=== PATIENT | male | born 1960 | race Caucasian/White ===

== ENCOUNTER 2020-03-29 14:18 | Inpatient (IN) | payer MEDICAID, SELFPAY ==
[~2020-03-29] VITALS: Ht 177.8 cm; Wt 93.0 kg
--- NOTE | 2020-03-29 14:18 | NUR ---
PATIENT LEONOR ALS TO ER BED 09
[2020-03-29 14:29] VITALS: BP 134/83
--- NOTE | 2020-03-29 14:34 | NUR ---
59 Y/O MALE BIBA FROM HOME FOR SOB/DRY COUGH/RESP DISTRESS X3 DAYS. UPON ARRIVAL PT WAS TAHCYPNEIC 50 BPM, LABORED. LUNG SOUNDS CLEAR BILAT. AFEBRILE. UNABLE TO AMBULATE D/T SOB. AAOX4. DENIES ANY CHEST PAIN OR CONTACT WITH COVID + PTS. PMH: PROSTATE CX NKDA
[2020-03-29] MEDS ORDERED: AZITHROMYCIN 500 MG in DEXTROSE 5% 250 ML IV ONE (14:40)
[2020-03-29] MEDS ORDERED: DEXAMETHASONE 4 MG/ML VIAL IVP ONE (14:40)
[2020-03-29] MEDS ORDERED: fentaNYL citrate 0.05 MG/ML VIAL NS ONE (14:55)
[2020-03-29] MEDS ORDERED: cefTRIAXone 1,000 MG VIAL ONE (15:08)
[2020-03-29 15:15] LABS: BASOPHILS # (AUTO) 0.1 K/uL (0.00-0.22); BASOPHILS % (AUTO) 0.9 % (0.0-2.0); EOSINOPHILS # (AUTO) 0.3 K/uL (0-0.4); EOSINOPHILS % (AUTO) 4.6 % (0.0-4.0); HEMATOCRIT 46.3 % (36-52); HEMOGLOBIN 15.6 g/dL (12.0-18.0); LYMPHOCYTES # (AUTO) 0.4 K/uL (2.0-11.5); LYMPHOCYTES % (AUTO) 5.2 % (20.5-51.1); MEAN CORPUSCULAR HEMOGLOBIN 29 pg (27-31); MEAN CORPUSCULAR HGB CONC 34 g/dL (33-37); MEAN CORPUSCULAR VOLUME 86.9 fL (80-94); MONOCYTES # (AUTO) 0.4 K/uL (0.8-1.0); MONOCYTES % (AUTO) 6.1 % (1.7-9.3); NEUTROPHILS # (AUTO) 5.9 K/uL (1.8-7.7); NEUTROPHILS % (AUTO) 83.2 % (42.2-75.2); PLATELET COUNT (AUTO) 228 K/uL (140-450); RED BLOOD CELL COUNT(AUTO) 5.33 MIL/uL (4.20-6.10); RED CELL DISTRIBUTION WIDTH 13.6 % (11.6-13.7); WHITE BLOOD COUNT (AUTO) 7.1 K/uL (4.8-10.8)
[2020-03-29 15:32] LABS: FIBRINOGEN 500 mg/dL (200-400); PROTHROMBIN TIME 11.3 secs (10.8-13.4)
[2020-03-29 16:06] LABS: D-DIMER > 5000 ng/ml (0-400)
[2020-03-29] MEDS ORDERED: AZITHROMYCIN 500 MG INJ VIAL IV ONE (16:27)
[2020-03-29] MEDS ORDERED: LOVENOX 1MG/KG Q12H SUBQ STA (16:35)
[2020-03-29 16:45] LABS: LACTATE DEHYDROGENASE 360 U/L (85-227)
[2020-03-29] MEDS ORDERED: ENOXAPARIN 100 MG/ML SYR SUBQ ONE (16:48)
[2020-03-29 18:33] LABS: ALBUMIN 2.3 g/dL (3.4-5.0); ANION GAP 15.5 (8-16); CARBON DIOXIDE 22.3 mmol/L (21-32); POTASSIUM 3.8 mmol/L (3.5-5.1); TOTAL BILIRUBIN 1.1 mg/dL (0.0-1.0)
[2020-03-29 18:52] LABS: APPEARANCE,URINE CLEAR (CLEAR); BILIRUBIN,URINE NEGATIVE (NEGATIVE); BLOOD, URINE NEGATIVE (NEGATIVE); COLOR,URINE DARK YELLOW (YELLOW); LEUKOCYTE ESTERASE ,URINE NEGATIVE (NEGATIVE); NITRITE, URINE NEGATIVE (NEGATIVE); UGLUCOSE NEGATIVE (NEGATIVE)
[2020-03-29] MEDS ORDERED: POTASSIUM CHLORIDE 10 MEQ TABER PO PRN (18:55)
[2020-03-29] MEDS ORDERED: ZOLPIDEM 5 MG TAB PO PRN (18:55)
[2020-03-29] MEDS ORDERED: ONDANSETRON 4 MG/2 ML VIAL IM/IVP PRN (18:55)
[2020-03-29] MEDS ORDERED: HYDROcodone/APAP 7.5/325 MG 1 TAB PO PRN (18:55)
[2020-03-29] MEDS ORDERED: guaiFENesin DM 200/20 MG-10 ML 10 ML UDC PO PRN (18:55)
--- NOTE | 2020-03-29 18:55 | NUR ---
DINNER TRAY PROVIDED AT BEDSIDE
[2020-03-29] MEDS ORDERED: ALBUTEROL HFA MDI 90 MCG/ACTUATION 8 GM INH PRN (19:00)
[2020-03-29] MEDS: NACL 0.9% 1,000 ML IV SCH (19:30)
--- NOTE | 2020-03-29 19:39 | NUR ---
RECIVED REPORT FROM DEE DEE MONDRAGON, CONTINUATION OF CARE.
[2020-03-29 19:47] LABS: BARBITURATE, URINE NEGATIVE ng/ml (NEG <=200); BENZODIAZEPINE, URINE NEGATIVE ng/mL (NEG <=200); CANNABINOID, URINE NEGATIVE ng/mL (NEG <=50); COCAINE, URINE NEGATIVE ng/mL (NEG <=300); OPIATE, URINE NEGATIVE ng/mL (NEG <=2000); PHENCYCLIDINE SCREEN,URINE NEGATIVE ng/mL (NEG <=25)
--- NOTE | 2020-03-29 20:45 | NUR ---
CONSENT SIGNED BY PATIENT.
--- NOTE | 2020-03-30 00:19 | NUR ---
SPOKE WITH HEATHER-GRANDSON AND GAVE UPDATE ON PATIENT STATUS WITH PERMISSION FROM PATIENT. [phone]
--- NOTE | 2020-03-30 00:20 | NUR ---
Patient appears to be resting comfortably in bed. Vital Signs within normal limits. NON-REBREATHER MASK IN PLACE AND PATIENT O2SAT @ 92% 10L. PT A&O X4. CALL LIGHT WITHIN REACH. URINAL AT BEDSIDE. PT GIEVN BLANKET AND PILLOW FOR COMFORT MEASURES. PT ABLE TO REPOSITON SELF. PT BED LOCKED AND IN LOWES POSITION.
--- NOTE | 2020-03-30 02:16 | NUR ---
Patient appears to be resting comfortably in bed. Vital Signs within normal limits. Respirations even and unlabored.
--- NOTE | 2020-03-30 03:02 | NUR ---
Patient appears to be resting comfortably in bed. Vital Signs within normal limits. Respirations even and unlabored.
[2020-03-30] MEDS: NACL 0.9% 1,000 ML IV SCH ×2 (04:55→15:35)
--- NOTE | 2020-03-30 05:21 | NUR ---
700CC OF YELLOW URINE EMPTIED OUT OF URINAL. PT ALERT AND ORIENTED X4. PATIENT REMAINS ON CARDIAC MONIOTR. VSS. PT ON 10L ON NON-REBREATHER MASK @ 94% O2SAT. PT DENIES PAIN AT THIS TIME. BED IS LOCKED AND IN LOWEST POSITION.
--- NOTE | 2020-03-30 07:04 | NUR ---
Patient appears to be resting comfortably in bed. Vital Signs within normal limits. Respirations even and unlabored. URINAL AT BEDSIDE.
--- NOTE | 2020-03-30 07:48 | NUR ---
Report received from GIANCARLO Rivera, transfered care at this time.
--- NOTE | 2020-03-30 07:54 | NUR ---
Pt resting visible equal rise and fall of chest, VSS, will continue to monitor.
[2020-03-30] MEDS: PANTOPRAZOLE 40 MG TABEC PO SCH (08:50)
[2020-03-30] MEDS: AZITHROMYCIN 250 MG TAB PO SCH (08:51)
[2020-03-30] MEDS: ZINC SULF 220 MG CAP PO SCH (08:51)
[2020-03-30] MEDS: ASCORBIC ACID 500 MG TAB PO SCH (08:51)
[2020-03-30] MEDS ORDERED: COMMUNICATION ORDER MC SCH (09:00)
[2020-03-30 09:09] LABS: BASOPHILS % (AUTO) 0.1 % (0.0-2.0); EOSINOPHILS % (AUTO) 0.1 % (0.0-4.0); HEMATOCRIT 44.2 % (36-52); HEMOGLOBIN 14.8 g/dL (12.0-18.0); LYMPHOCYTES # (AUTO) 0.5 K/uL (2.0-11.5); MEAN CORPUSCULAR HEMOGLOBIN 29 pg (27-31); MEAN CORPUSCULAR HGB CONC 34 g/dL (33-37); MEAN CORPUSCULAR VOLUME 87.6 fL (80-94); MONOCYTES # (AUTO) 0.3 K/uL (0.8-1.0); MONOCYTES % (AUTO) 5.6 % (1.7-9.3); NEUTROPHILS # (AUTO) 5.4 K/uL (1.8-7.7); PLATELET COUNT (AUTO) 258 K/uL (140-450); RED BLOOD CELL COUNT(AUTO) 5.05 MIL/uL (4.20-6.10); RED CELL DISTRIBUTION WIDTH 13.5 % (11.6-13.7); WHITE BLOOD COUNT (AUTO) 6.2 K/uL (4.8-10.8)
[2020-03-30 09:49] LABS: ANION GAP 13.6 (8-16); CARBON DIOXIDE 24.9 mmol/L (21-32); CREATININE 0.8 mg/dL (0.6-1.3); POTASSIUM 4.5 mmol/L (3.5-5.1)
--- NOTE | 2020-03-30 10:14 | NUR ---
Pt repositioned in bed, VSS, will continue to monitor.
[2020-03-30 10:29] LABS: NEUTROPHILS % (AUTO) 86.2 % (42.2-75.2)
--- NOTE | 2020-03-30 12:04 | NUR ---
Gave pt water, HOB elevated, no changes at this time.
--- NOTE | 2020-03-30 14:26 | NUR ---
Pt assisted with urinal at bedside, gave sips of H2O, patient comfortable HOB elevated. VSS, will continue to monitor.
--- NOTE | 2020-03-30 16:04 | NUR ---
Pt sleeping, visible equal rise and fall of chest, VSS, will continue to monitor.
[2020-03-30] MEDS ORDERED: cefTRIAXone 1,000 MG VIAL ONE (17:29)
--- NOTE | 2020-03-30 18:30 | NUR ---
Pt placed in a diaper by request, repositioned in bed, HOB elevated, VSS, will continue to monitor.
[2020-03-30] MEDS: DOCUSATE SODIUM 100 MG GELCAP PO PRN (19:20)
--- NOTE | 2020-03-30 19:22 | NUR ---
Gave report to GIANCARLO Rivera, transfered care at this time.
--- NOTE | 2020-03-30 19:32 | NUR ---
RECIVED REPORT FROM JOY MONDRAGON. TRANSFER OF CARE.
--- NOTE | 2020-03-30 19:55 | NUR ---
PATIENT ASSISTED WITH TOILETING AND GIVEN BED MORRIS AND HAD LARGE BM, BROWN, SOFT, AND FORMED. PT SKIN INTACT, SKIN LEFT CLEAN AND DRY. PATIENT GIVEN URINAL AT BEDISDE AND URINATED 700CC OF YELLOW URINE. PT SKIN INTACT. PATIENT ABLE TO REPOSITON SELF. PT REMAINS A &O X4. PT REMAINS ON NON-REBREATHER MASK @ 15L/MIN. PATIENT REMAINS ON DIRECTOR IMMUNOLOGY. VSS. BED IS LOCKED AND IN LOWEST POSITION. IV SITE REMAINS PATIENT AND IVF RUNNING ORDERED.
[2020-03-30 21:23] LABS: CHOL/HDL RATIO 8.6 (1-4.5); FREE T4 (FREE THYROXINE) 1.68 ng/dL (0.76-1.46); MAGNESIUM 2.4 mg/dL (1.8-2.4); PHOSPHORUS 3.5 mg/dL (2.5-4.9); THYROID STIMULATING HORMONE 1.66 uIU/mL (0.34-3.74)
--- NOTE | 2020-03-30 23:20 | NUR ---
Patient will be admitted to care of . Admited to TELE. Will go to room 108B. Belongings list completed. Report to LIBIA MONDRAGON.
[2020-03-30 23:45] VITALS: BP 126/59
--- NOTE | 2020-03-30 23:45 | NUR ---
RECEIVED REPORT FROM ER NURSE, ISIDORO. PT ON TELE, AOX4 ON 15L NRB, O2 SAT FLUCTUATING 88% TO 90%. NO S/S RESPIRATORY DISTRESS. NO C/O PAIN AT THIS TIME. IV SITE L HAND 20G, RAC 20G, PATENT AND INTACT, INFYUSING IVF ORDERED. SKIN WARM DRY INTACT. BOWEL SOUNDS ACTIVE. ORIENTED TO ROOM AND HOSPITAL. SAFETY MEASURES AND DROPLET PRECAUTION IN PLACE. CALL LIGHT WITHIN REACH. WILL CONTINUE TO MONITOR. VS: BP 126/59 HR 99 RR 22 O2 SAT 90% TEMP 97.3 DX: [facility], COVID
--- NOTE | 2020-03-31 | NUR ---
PLAN OF CARE DISCUSSED. PT VERBALIZED UNDERSTANDING. DENIES PAIN. DENIES SOB. RESPIRATIONS EVEN AND UNLABORED. WILL CONTINUE TO MONITOR
[2020-03-31] MEDS: NACL 0.9% 1,000 ML IV SCH ×3 (00:09→20:40)
--- NOTE | 2020-03-31 02:30 | NUR ---
PT AWAKE IN BED. WATCHING TELEVISION. DENIES PAIN DENIES SOB. NO DISTRESS NOTED. WILL CONTINUE TO MONITOR
--- NOTE | 2020-03-31 04:35 | NUR ---
PT ASLEEP IN BED. NO DISTRESS NOTED. WILL CONTINUE TO MONITOR
--- NOTE | 2020-03-31 05:33 | NUR ---
PROVIDED SNACKS AND JUICE. ASSISTED PT WITH EATING. TOLERATED WELL. NRB MASK PLACED BACK ON. NO DISTRESS NOTED. WILL CONTINUE TO MONITOR
[2020-03-31 06:07] VITALS: BP 117/72
--- NOTE | 2020-03-31 07:10 | NUR ---
RECEIVED REPORT FROM NIGHT NURSE FOR CONTINUITY OF CARE, PT IS STABLE, PT ASLEEP. PT HAS LH 20G SALINE LOCK AND RAC20G INFUSING NS AT 100ML/H, SKIN INTACT, PT ON 15L NON-REBREATHER. SAFETY MEASURES IN PLACE, WILL CONTINUE TO MONITOR.
--- NOTE | 2020-03-31 07:10 | NUR ---
ENDORSED PT TO DAY RN FOR CONTINUITY OF CARE. PT IS IN STABLE CONDITION
[2020-03-31 08:00] VITALS: BP 119/78
[2020-03-31] MEDS: ENOXAPARIN 40 MG/0.4 ML SYR SUBQ SCH (08:33)
[2020-03-31] MEDS: AZITHROMYCIN 250 MG TAB PO SCH (08:34)
[2020-03-31] MEDS: ASCORBIC ACID 500 MG TAB PO SCH (08:34)
[2020-03-31] MEDS: PANTOPRAZOLE 40 MG TABEC PO SCH (08:34)
[2020-03-31] MEDS: ZINC SULF 220 MG CAP PO SCH (08:36)
--- NOTE | 2020-03-31 08:41 | NUR ---
ADMINISTERED SCHEDULED MEDICATION,MEDICATION EDUCATION PROVIDED. PT TOLERATED WELL. PT IS STABLE, WILL CONTINUE TO MONITOR. CALL LIGHT WITHIN REACH.
[2020-03-31 09:01] LABS: BASOPHILS % (AUTO) 0.1 % (0.0-2.0); EOSINOPHILS % (AUTO) 0.1 % (0.0-4.0); HEMATOCRIT 44.9 % (36-52); HEMOGLOBIN 15.1 g/dL (12.0-18.0); LYMPHOCYTES # (AUTO) 0.5 K/uL (2.0-11.5); LYMPHOCYTES % (AUTO) 5.8 % (20.5-51.1); MEAN CORPUSCULAR HEMOGLOBIN 29 pg (27-31); MEAN CORPUSCULAR HGB CONC 34 g/dL (33-37); MEAN CORPUSCULAR VOLUME 87.4 fL (80-94); MONOCYTES # (AUTO) 0.5 K/uL (0.8-1.0); MONOCYTES % (AUTO) 5.6 % (1.7-9.3); NEUTROPHILS # (AUTO) 7.9 K/uL (1.8-7.7); NEUTROPHILS % (AUTO) 88.4 % (42.2-75.2); PLATELET COUNT (AUTO) 285 K/uL (140-450); RED BLOOD CELL COUNT(AUTO) 5.14 MIL/uL (4.20-6.10); RED CELL DISTRIBUTION WIDTH 13.5 % (11.6-13.7); WHITE BLOOD COUNT (AUTO) 8.9 K/uL (4.8-10.8)
[2020-03-31 09:02] LABS: ANION GAP 11.9 (8-16); CREATININE 0.9 mg/dL (0.6-1.3); POTASSIUM 3.9 mmol/L (3.5-5.1)
--- NOTE | 2020-03-31 10:40 | NUR ---
CALLED RT TO COME ASSESS PT, PT IS STABLE,
--- NOTE | 2020-03-31 11:30 | NUR ---
CALLED RT TO COME ASSESS PT, PT IS STABLE, WILL CONTINUE TO MONITOR
[2020-03-31 12:00] VITALS: BP 124/79
--- NOTE | 2020-03-31 12:23 | NUR ---
SOCIAL WORK NOTE: Patient's Orientation Unable To Assess Information Provided By HEATHER STAPLES Comments SW WAS UNABLE TO MEET PATIENT AT BEDSIDE DUE TO MEDICAL CONDITION. SW COMPLETED ASSESSMENT WITH PATIENT'S GRANDSON. Procurement Coordinator, Realtionship and Phone Number HEATHER STAPLES [phone] AMI SMITH [phone] [facility] Power of [place] No Does Patient Have a POLST No Identifying Problems No Social Work Triggers Is A Social Work Consult Needed No Mandate Report Filed No Explanation Of Identifying Problems PATIENT IS A 59-YEAR-OLD MALE ADMITTED FOR BILATERAL PNEUMONIA AND COVID. PATIENT HAS NO REPORTED PMHX. Admitted From Home Pre-Admission Level Of Functioning Status Independent/Ambulatory Prior Resources/Services Used In Last 12 Months No Prior Resources Used Prior DME No Prior DME Used Dialysis Comments N/A Living Situation Lives With Family Mobile Home Other Living Situation/Comment BEL STATED THAT PATIENT LIVES WITH HIM AND SPOUSE. Patient Had Caregiver No Home Support No Caregiver Issues Financial Issues No Known Financial Issue Referral To The Financial Counselor Needed No Factors/Needs No D/C Needs Identified Pt/Rep Participated In Discharge Plan Yes Patient/Family Agress With Discharge Plan Yes Discharge Plan Comments TENTATIVE DISCHARGE PLAN IS FOR PATIENT TO RETURN HOME. DC Plan Status Initiated Addendum: 04/01/20 at 1549 by Poncho CANALES PER RN REQUEST, AGNES PROVIDED FOOD BANK RESOURCES TO PATIENT.
[2020-03-31 16:00] VITALS: BP 109/64
--- NOTE | 2020-03-31 17:41 | NUR ---
ADMINISTERED SCHEDULED MEDICATION, MEDICATION EDUCATION PROVIDED. PT TOLERATED WELL, PT IS STABLE, WILL CONTINUE TO MONITOR.
--- NOTE | 2020-03-31 19:20 | NUR ---
ENDORSE TO NIGHT NURSE FOR CONTINUITY OF CARE, PT IS STABLE
--- NOTE | 2020-03-31 19:25 | NUR ---
RECEIVED PT AWAKE SITTING UP ON BED, AAOX4, NO RESP DISTRESS NOTED, WITH SAT-96% ON O2 AT 15L VIA NRB MASK, PLAN OF CARE DISCUSSED AND SAFETY MEASURES IN PLACE, MAINTAINED ON DROPLET PRECAUTION FOR R/O COVID, CALL LIGHT WITHIN REACH.
[2020-03-31 20:00] VITALS: BP 115/72
--- NOTE | 2020-03-31 21:30 | NUR ---
SEEN PT AWAKE WATCHING TV, NO RESP DISTRESS NOTED, MONITORED CLOSELY.
[2020-04-01] VITALS: BP 119/72
--- NOTE | 2020-04-01 00:15 | NUR ---
PT IN NO RESP DISTRESS, CONTINUE ON 15L NONREBREATHER MASK WITH SAT OF 95%, IVF INFUSING WELL, MEDICATED PRN FOR INSOMNIA WITH AMBIEN PO, MONITORED CLOSELY.
[2020-04-01 04:25] VITALS: BP 122/72
--- NOTE | 2020-04-01 05:20 | NUR ---
SEEN PT SLEEPING, NO RESP DISTRESS NOTED, IVF INFUSING WELL, MONITORED CLOSELY.
[2020-04-01] MEDS: NACL 0.9% 1,000 ML IV SCH ×2 (07:07→17:26)
--- NOTE | 2020-04-01 07:29 | NUR ---
RECEIVED REPORT FROM NIGHT NURSE FOR CONTINUITY OF CARE, PT IS STABLE. PT ON 15L NON-REBREATHER. PT HAS RAC 20G INFUSING NS AT 100 AND LH 22G SALINE LOCK. SAFETY MEASURES IN PLACE, WILL CONTINUE TO MONITOR.
--- NOTE | 2020-04-01 07:30 | NUR ---
PT AWAKE, NO RESP DISTRESS NOTED, REPORT GIVEN TO RN NA FOR CONTINUITY OF CARE.
[2020-04-01 08:00] VITALS: BP 117/80
[2020-04-01] MEDS: ASCORBIC ACID 500 MG TAB PO SCH (08:15)
[2020-04-01] MEDS: ENOXAPARIN 40 MG/0.4 ML SYR SUBQ SCH (08:15)
[2020-04-01] MEDS: ZINC SULF 220 MG CAP PO SCH (08:15)
[2020-04-01] MEDS: AZITHROMYCIN 250 MG TAB PO SCH (08:15)
[2020-04-01] MEDS: PANTOPRAZOLE 40 MG TABEC PO SCH (08:15)
--- NOTE | 2020-04-01 08:18 | NUR ---
ADMINISTERED SCHEDULED MEDICATION, MEDICATION EDUCATION PROVIDED. PT TOLERATED WELL. PT IS STABLE, WILL CONTINUE TO MONITOR.
[2020-04-01 08:37] LABS: CARBON DIOXIDE 27.4 mmol/L (21-32); CREATININE 0.9 mg/dL (0.6-1.3); POTASSIUM 4.4 mmol/L (3.5-5.1)
[2020-04-01 08:54] LABS: BASOPHILS % (AUTO) 0.2 % (0.0-2.0); EOSINOPHILS # (AUTO) 0.1 K/uL (0-0.4); EOSINOPHILS % (AUTO) 1.5 % (0.0-4.0); HEMATOCRIT 42.7 % (36-52); HEMOGLOBIN 14.1 g/dL (12.0-18.0); LYMPHOCYTES # (AUTO) 0.5 K/uL (2.0-11.5); LYMPHOCYTES % (AUTO) 5.3 % (20.5-51.1); MEAN CORPUSCULAR HEMOGLOBIN 29 pg (27-31); MEAN CORPUSCULAR HGB CONC 33 g/dL (33-37); MEAN CORPUSCULAR VOLUME 87.7 fL (80-94); MONOCYTES # (AUTO) 0.6 K/uL (0.8-1.0); MONOCYTES % (AUTO) 5.8 % (1.7-9.3); NEUTROPHILS # (AUTO) 8.5 K/uL (1.8-7.7); NEUTROPHILS % (AUTO) 87.2 % (42.2-75.2); PLATELET COUNT (AUTO) 263 K/uL (140-450); RED BLOOD CELL COUNT(AUTO) 4.87 MIL/uL (4.20-6.10); RED CELL DISTRIBUTION WIDTH 13.6 % (11.6-13.7); WHITE BLOOD COUNT (AUTO) 9.7 K/uL (4.8-10.8)
--- NOTE | 2020-04-01 09:33 | NUR ---
PT COMPLAINED OF NAUSEA, WENT TO GIVE PT ZOFRAN AND PT STATES HE IS HAVING STOMACH PAIN OF 2-3 AND NOT NAUSEA. GAVE PT BEDPAN TO USE.
[2020-04-01] MEDS: DOCUSATE SODIUM 100 MG GELCAP PO PRN (11:54)
--- NOTE | 2020-04-01 11:55 | NUR ---
ADMINISTERED COLACE FOR CONSTIPATION, PT COMPLAINS STOMACH HURTS AND UNABLE TO HAVE A BOWEL MOVEMENT. MEDICATION EDUCATION PROVIDED. PT TOLERATED WELL. PT IS STABLE, WILL CONTINUE TO MONITOR.
[2020-04-01 12:00] VITALS: BP 116/76
[2020-04-01 16:00] VITALS: BP 115/82
--- NOTE | 2020-04-01 17:26 | NUR ---
ADMINISTERED SCHEDULED MEDICATION, MEDICATION EDUCATION PROVIDED. PT TOLERATED WELL. PT IS STABLE, WILL CONTINUE TO MONITOR.
--- NOTE | 2020-04-01 19:10 | NUR ---
ENDORSE P TO NIGHT NURSE FOR CONTINUITY OF CARE, PT IS STABLE
--- NOTE | 2020-04-01 19:15 | NUR ---
RECEIVED PT AWAKE SITTING UP ON BED, AAOX4, NO RESP DISTRESS NOTED, WITH SAT-96% ON O2 AT 15L VIA NRB MASK, PLAN OF CARE DISCUSSED AND SAFETY MEASURES IN PLACE, MAINTAINED ON DROPLET PRECAUTION FOR R/O COVID, CALL LIGHT WITHIN REACH. Addendum: 04/02/20 at 0020 by Ollie Lewis RN SAT IS 94%
[2020-04-01 20:00] VITALS: BP 115/76
--- NOTE | 2020-04-01 23:30 | NUR ---
SEEN PT SLEEPING ON HIGH FOWLERS POSITION, NO RESP DISTRESS NOTED, IVF INFUSING WELL, CONTINUE ON 15L O2 VIA NONREBREATHER MASK WITH SAT OF 94%, CONTINUE TO MONITOR CLOSELY.
[2020-04-02] VITALS: BP 117/77
--- NOTE | 2020-04-02 04:10 | NUR ---
SEEN PT SLEEPING, NO SIGNS OF RESP DISTRESS, IVF INFUSING WELL, MONITORED CLOSELY.
[2020-04-02] MEDS: NACL 0.9% 1,000 ML IV SCH ×3 (05:17→22:55)
[2020-04-02 06:25] VITALS: BP 121/61
--- NOTE | 2020-04-02 07:20 | NUR ---
PT AWAKE, NO SIGNS OF DISTRESS, REPORT GIVEN TO GIANCARLO YANEZ FOR CONTINUITY OF CARE.
--- NOTE | 2020-04-02 07:22 | NUR ---
RECEIVED BEDSIDE REPORT FROM TOOLROOM CLERK NURSE. PT IS AWAKE AND SITTING UP ON BED, AAOX4, NO RESP DISTRESS OR PAIN NOTED, WITH SAT-96% ON O2 AT 15L VIA NRB MASK, PLAN OF CARE DISCUSSED AND SAFETY MEASURES IN PLACE, BED IN LOW POSITION AND CALL LIGHT WITHIN REACH. WILL CONTINUE TO MONITOR.
[2020-04-02 08:00] VITALS: BP 100/66
[2020-04-02] MEDS: ASCORBIC ACID 500 MG TAB PO SCH (08:24)
[2020-04-02] MEDS: PANTOPRAZOLE 40 MG TABEC PO SCH (08:25)
[2020-04-02] MEDS: AZITHROMYCIN 250 MG TAB PO SCH (08:25)
[2020-04-02] MEDS: ZINC SULF 220 MG CAP PO SCH (08:25)
--- NOTE | 2020-04-02 08:25 | NUR ---
ALL SCHEDULED MEDS GIVEN. PT IS STABLE. NO DISTRESS NOTED. WILL CONTINUE TO MONITOR.
[2020-04-02] MEDS: ENOXAPARIN 40 MG/0.4 ML SYR SUBQ SCH (08:26)
[2020-04-02 12:00] VITALS: BP 115/74
--- NOTE | 2020-04-02 12:10 | NUR ---
CHECKED ON PATIENT. PATIENT IS STABLE. NO RESPIRATORY DISTRESS NOTED. ON 15L NRB MASK SATING AT 91%. WILL CONTINUE TO MONITOR.
--- NOTE | 2020-04-02 13:45 | NUR ---
CHECKED ON PATIENT. PATIENT IS AWAKE AND WATCHING TV. NO RESPIRATORY DISTRESS NOTED. WILL CONTINUE TO MONITOR.
[2020-04-02 16:00] VITALS: BP 113/78
--- NOTE | 2020-04-02 16:34 | NUR ---
TITRATED O2 TO 10L NRB. PATIENT SATING 84% CONSISTENTLY. TITRATED IT BACK TO 15 L PATIENT IS SATING AT 91%.
--- NOTE | 2020-04-02 19:30 | NUR ---
ENDORSED TO DRAW BENCH OPERATOR NURSE FOR CONTINUITY OF CARE.
[2020-04-02 20:00] VITALS: BP 100/66
[2020-04-02] MEDS: ENOXAPARIN 80 MG/0.8 ML SYR SUBQ SCH (20:53)
[2020-04-02] MEDS ORDERED: LOVENOX 1MG/KG Q12H SUBQ SCH (21:00)
[2020-04-03] VITALS: BP 121/72
--- NOTE | 2020-04-03 00:20 | NUR ---
Positive COVID-19 test results were received from lab. A copy of the test results were given to Infection Control.
[2020-04-03 06:00] VITALS: BP 116/70
[2020-04-03 08:00] VITALS: BP 104/52
--- NOTE | 2020-04-03 08:00 | NUR ---
RECEIVED REPORT FROM MANAGER SECURITY AND SAFETY FOR CONTINUITY OF CARE. PATIENT ALERT AWAKE ORIENTED X4, NOT IN DISTRESS NOTED. ON 15L NRB SATURATING 91%. DENIES PAIN. WITH IVF ON GOING AND INFUSING WELL. ON MONITOR SHOWS SR/ST. DENIES PAIN AT THIS TIME.WILL CONTINUE TO MONITOR.
[2020-04-03] MEDS: ZINC SULF 220 MG CAP PO SCH (08:48)
[2020-04-03] MEDS: ASCORBIC ACID 500 MG TAB PO SCH (08:48)
[2020-04-03] MEDS: PANTOPRAZOLE 40 MG TABEC PO SCH (08:48)
[2020-04-03] MEDS: AZITHROMYCIN 250 MG TAB PO SCH (08:48)
[2020-04-03] MEDS: ENOXAPARIN 80 MG/0.8 ML SYR SUBQ SCH ×2 (08:49→20:01)
--- NOTE | 2020-04-03 09:30 | NUR ---
DUE MEDICATION GIVEN AND TOLERATED WELL. PATIENT COMPLAON THAT THE AIR COMING OUT OF THE OXYGEN IS WARM, CALLED RT. AND INSTRUCTED PATIENT TO RELAX AND BREATH TO HIS NOSE, PATIENT VERBALIZED UNDERSTANDING. WILL CONTINUE TO MONITOR.
[2020-04-03 09:38] LABS: BASOPHILS % (AUTO) 0.3 % (0.0-2.0); EOSINOPHILS # (AUTO) 0.4 K/uL (0-0.4); EOSINOPHILS % (AUTO) 3.3 % (0.0-4.0); HEMATOCRIT 46.1 % (36-52); HEMOGLOBIN 15.2 g/dL (12.0-18.0); LYMPHOCYTES # (AUTO) 0.6 K/uL (2.0-11.5); LYMPHOCYTES % (AUTO) 5.8 % (20.5-51.1); MEAN CORPUSCULAR HEMOGLOBIN 29 pg (27-31); MEAN CORPUSCULAR HGB CONC 33 g/dL (33-37); MEAN CORPUSCULAR VOLUME 88.5 fL (80-94); MONOCYTES # (AUTO) 0.5 K/uL (0.8-1.0); MONOCYTES % (AUTO) 4.5 % (1.7-9.3); NEUTROPHILS # (AUTO) 9.6 K/uL (1.8-7.7); NEUTROPHILS % (AUTO) 86.1 % (42.2-75.2); PLATELET COUNT (AUTO) 314 K/uL (140-450); RED BLOOD CELL COUNT(AUTO) 5.21 MIL/uL (4.20-6.10); RED CELL DISTRIBUTION WIDTH 13.7 % (11.6-13.7); WHITE BLOOD COUNT (AUTO) 11.1 K/uL (4.8-10.8)
[2020-04-03 10:39] LABS: ALBUMIN 2.4 g/dL (3.4-5.0); ANION GAP 11.7 (8-16); CARBON DIOXIDE 28.9 mmol/L (21-32); CREATININE 0.8 mg/dL (0.6-1.3); MAGNESIUM 2.3 mg/dL (1.8-2.4); PHOSPHORUS 2.8 mg/dL (2.5-4.9); POTASSIUM 3.6 mmol/L (3.5-5.1); TOTAL BILIRUBIN 0.7 mg/dL (0.0-1.0)
[2020-04-03 12:00] VITALS: BP 104/73
--- NOTE | 2020-04-03 12:00 | NUR ---
PATIENT RESTING IN BED, SATURATION ON 15L NRB SHOWS 89%, NO SOB NOTED. WILL CONTINUE TO MONITOR.
[2020-04-03] MEDS ORDERED: remdesivir COMMUNICATION ORDER 1 EA MISC MC PRN (14:25)
[2020-04-03] MEDS ORDERED: remdesivir CLINICAL MONITORING 1 EA MISC MC PRN (14:30)
[2020-04-03] MEDS ORDERED: REMDESIVIR (EUA) 200 MG in NACL 0.9% 100 ML IV SCH (15:00)
[2020-04-03 16:00] VITALS: BP 103/74
[2020-04-03] MEDS: NACL 0.9% 1,000 ML IV SCH ×2 (16:02→18:55)
--- NOTE | 2020-04-03 18:49 | NUR ---
PATIENT RESTING, DENIES PAIN. WILL ENDORSE TO THE NEXT SHIFT FOR CONTINUITY OF CARE.
--- NOTE | 2020-04-03 19:20 | NUR ---
RECEIVED PT IN STABLE CONDITION FROM AM NURSE. TELE PT. AWAKE,ALERT AND ORIENTED X4. ON DROPLET ISOLATION PRECAUTION DUE TO COVID 19 +. ON O2 15 NRB. INSTRUCTED TO ALWAYS WEAR THE O2 . HAS IVF INFUSING WELL ON THE LT HAND G#20. CLEAR AND PATENT. PLAN OF CARE DISCUSSED AND VERBALIZED UNDERSTANDING. FREQ ROUNDS NEEDED. BED ON LOW POSITION . SIDE RAILS UP X2. CALL LIGHT AND URINAL WITHIN REACH. WILL CONTINUE TO MONITOR.
[2020-04-03 20:00] VITALS: BP 116/73
--- NOTE | 2020-04-03 23:40 | NUR ---
EARLIER @ 2030 PT TENDS TO REMOVE O2 . SAT DROPPED TO 81%-82% INSTRUCTED PT TO ALWAYS PUT IT ON. FOR HIS BREATHING NEED. ADJUSTED THE NRB MASK , O2 SAT 85%-86% WITH 15L NRB. THIS TIME RT ELDER CAME AND ASSESSED PT. HE ADDED O2 6L/NC WITH HUMIDIFIER. AT THIS TIME O2 SAT 88%. PT NOT IN DISTRESS . WILL CONTINUE TO MONITOR.
[2020-04-04] VITALS (8 sets, daily range): BP systolic 103–140; BP diastolic 59–88
--- NOTE | 2020-04-04 | NUR ---
O2 SAT AT THIS TIME 89% WITH 15L NRB AND 02 6L /NC. NO RESPIRATORY DISTRESS NOTED.
--- NOTE | 2020-04-04 03:30 | NUR ---
MADE ROUNDS. PT ASLEEP. NO SOB NOR DISTRESS NOTED.
[2020-04-04] MEDS: NACL 0.9% 1,000 ML IV SCH ×3 (05:42→16:32)
--- NOTE | 2020-04-04 06:10 | NUR ---
CHECKED ON PT. TEMP 98.7 WITH O2 SAT 93%. ENCOURAGED TO KEEP THE O2 ON AT ALL THE TIMES. VERBALIZED UNDERSTANDING.
--- NOTE | 2020-04-04 07:45 | NUR ---
ENDORSED PT IN STABLE CONDITION TO AM NURSE.
[2020-04-04 08:41] LABS: ALBUMIN 2.1 g/dL (3.4-5.0); ANION GAP 9.4 (8-16); CARBON DIOXIDE 26.6 mmol/L (21-32); CREATININE 0.8 mg/dL (0.6-1.3); MAGNESIUM 1.7 mg/dL (1.8-2.4); PHOSPHORUS 2.6 mg/dL (2.5-4.9); TOTAL BILIRUBIN 0.8 mg/dL (0.0-1.0)
[2020-04-04 08:48] LABS: BASOPHILS % (AUTO) 0.4 % (0.0-2.0); EOSINOPHILS # (AUTO) 0.1 K/uL (0-0.4); EOSINOPHILS % (AUTO) 1.3 % (0.0-4.0); HEMATOCRIT 43.3 % (36-52); HEMOGLOBIN 14.3 g/dL (12.0-18.0); LYMPHOCYTES # (AUTO) 0.7 K/uL (2.0-11.5); LYMPHOCYTES % (AUTO) 5.8 % (20.5-51.1); MEAN CORPUSCULAR HEMOGLOBIN 29 pg (27-31); MEAN CORPUSCULAR HGB CONC 33 g/dL (33-37); MEAN CORPUSCULAR VOLUME 87.1 fL (80-94); MONOCYTES # (AUTO) 0.6 K/uL (0.8-1.0); NEUTROPHILS % (AUTO) 87.5 % (42.2-75.2); PLATELET COUNT (AUTO) 295 K/uL (140-450); RED BLOOD CELL COUNT(AUTO) 4.98 MIL/uL (4.20-6.10); RED CELL DISTRIBUTION WIDTH 13.5 % (11.6-13.7); WHITE BLOOD COUNT (AUTO) 11.4 K/uL (4.8-10.8)
[2020-04-04] MEDS: PANTOPRAZOLE 40 MG TABEC PO SCH (09:00)
[2020-04-04] MEDS: ASCORBIC ACID 500 MG TAB PO SCH (09:45)
--- NOTE | 2020-04-04 09:55 | NUR ---
(04/04/20) RD INITIAL ASSESSMENT COMPLETED PLEASE REFER TO NUTRITION ASSESSMENT UNDER CARE ACTIVITY FOR ESTIMATED NUTRITIONAL NEEDS. RD RECOMMENDATIONS: 1. CONTINUE ON REGULAR MECHANICAL SOFT DIET TOLERATED. 2. CONTINUE ON ONS ENSURE ENLIVES 1 CARTON WITH MEALS TID TOLERATED. 3. CONSULT RDN PRN. 4. RD WILL F/U 3-5 DAYS; MODERATE RISK. ANDREW COLE MS, RDN
[2020-04-04] MEDS: ZINC SULF 220 MG CAP PO SCH (10:43)
[2020-04-04] MEDS: ENOXAPARIN 80 MG/0.8 ML SYR SUBQ SCH ×2 (10:53→20:36)
[2020-04-04] MEDS: REMDESIVIR (EUA) 100 MG in NACL 0.9% 100 ML IV SCH (13:30)
[2020-04-04] MEDS ORDERED: MAGNESIUM OXIDE 400 MG TAB PO SCH (15:55)
[2020-04-04] MEDS: ACETAMINOPHEN 325 MG TAB PO PRN ×2 (16:24→23:30)
--- NOTE | 2020-04-04 19:35 | NUR ---
RECEIVED PT IN STABLE CONDITION FROM AM NURSE. AWAKE,ALERT AND ORIENTED X4. TELE PT. ON DROPLET ISOLATION DUE TO COVID 19 +. ON O2 15L NRB AND 10L NC WITH HUMIDIFIER. NO SOB NOTED. HAS IVF INFUSING WELL ON THE LT HAND g#20. CLEAR AND PATENT. INSTRUCTED TO KEEP O2 AT ALL TIMES. VERBALIZED UNDERSTANDING. FREQ ROUNDS NEEDED. BED ON LOW POSITION. SIDE RAILS UP X2. CALL LIGHT AND URINAL WITHIN REACH. WILL CONTINUE TO MONITOR.
--- NOTE | 2020-04-04 22:20 | NUR ---
@2200 PT CALLED AND SAID HE CAN'T BREATH. ,CAME IN AND CHECKED ON PT. HE IS BREATHING FAST, HR 130/MIN THEN O2 SAT 0NLY 74%-78%. ENCOURAGED PT TO LAY PRONE BUT HE CAN ONLY DO ON SIDE. RT WAS PAGED THEN CAME . HE INSTRUCTED PT PT REALLY LAY PRONED INSTRUCTED, O2 SAT NOW STARTED TO GO UP TO 90%-91%.
--- NOTE | 2020-04-04 22:42 | NUR ---
CONTINUE TO MONITOR PT. O2 SAT HAS BEEN DOING WELL 95% AT THIS TIME.
--- NOTE | 2020-04-04 23:30 | NUR ---
PT TEMP 101.8 HR-135,RR-25 BP -123/59 O2 SAT 96%, COOLING MEASURES DONE, TYLENOL 650 MG PO GIVEN . WILL CONTINUE TO MONITOR.
[2020-04-05] VITALS: BP 123/59
--- NOTE | 2020-04-05 00:30 | NUR ---
RECHECKED TEMP DOWN TO 99.4 BUT PT LYING ON HIS BACK AGAIN. INSTRUCTED TO LAY PRONE WHICH HE DID. O2 SAT SLOWLY GOING UP TO 92%.
--- NOTE | 2020-04-05 01:00 | NUR ---
CHECKED ON PT O2 SAT 94%. SLEEPING ON PRONE POSITION.
[2020-04-05 04:00] VITALS: BP 119/38
--- NOTE | 2020-04-05 05:30 | NUR ---
ASLEEP. NO SOB NOTED, O2 SAT 96%.
--- NOTE | 2020-04-05 07:47 | NUR ---
ENDORSED PT IN STABLE CONDITION TO AM NURSE.
[2020-04-05 08:00] VITALS: BP 127/75
[2020-04-05] MEDS: PANTOPRAZOLE 40 MG TABEC PO SCH (09:30)
[2020-04-05] MEDS: ZINC SULF 220 MG CAP PO SCH (09:30)
[2020-04-05] MEDS: ASCORBIC ACID 500 MG TAB PO SCH (09:30)
[2020-04-05] MEDS: ENOXAPARIN 80 MG/0.8 ML SYR SUBQ SCH ×2 (09:32→20:48)
[2020-04-05 09:34] LABS: BASOPHILS % (AUTO) 0.4 % (0.0-2.0); EOSINOPHILS % (AUTO) 0.3 % (0.0-4.0); HEMATOCRIT 46.5 % (36-52); HEMOGLOBIN 15.5 g/dL (12.0-18.0); LYMPHOCYTES # (AUTO) 0.3 K/uL (2.0-11.5); LYMPHOCYTES % (AUTO) 2.4 % (20.5-51.1); MEAN CORPUSCULAR HEMOGLOBIN 29 pg (27-31); MEAN CORPUSCULAR HGB CONC 33 g/dL (33-37); MEAN CORPUSCULAR VOLUME 87.7 fL (80-94); MONOCYTES # (AUTO) 0.5 K/uL (0.8-1.0); MONOCYTES % (AUTO) 3.7 % (1.7-9.3); NEUTROPHILS # (AUTO) 12.4 K/uL (1.8-7.7); NEUTROPHILS % (AUTO) 93.2 % (42.2-75.2); PLATELET COUNT (AUTO) 307 K/uL (140-450); RED CELL DISTRIBUTION WIDTH 13.7 % (11.6-13.7); WHITE BLOOD COUNT (AUTO) 13.3 K/uL (4.8-10.8)
--- NOTE | 2020-04-05 09:39 | NUR ---
SCHEDULED MEDICATIONS GIVEN, EDUCATION PROVIDED. PATIENT TOLERATED WELL. PATIENT IS ON 15L NRB, PLUS 15L NC. [place]. INSTRUCTED THE PATIENT TO RELAX AND TAKE DEEP BREATH. VERBALIZED UNDERSTANDING. WILL CONTINUE TO MONITOR.
[2020-04-05 10:01] LABS: ALBUMIN 2.2 g/dL (3.4-5.0); ANION GAP 13.2 (8-16); CARBON DIOXIDE 27.9 mmol/L (21-32); MAGNESIUM 2.3 mg/dL (1.8-2.4); PHOSPHORUS 3.3 mg/dL (2.5-4.9); POTASSIUM 4.1 mmol/L (3.5-5.1); TOTAL BILIRUBIN 1.7 mg/dL (0.0-1.0)
[2020-04-05] MEDS: NACL 0.9% 1,000 ML IV SCH ×3 (10:55→20:54)
--- NOTE | 2020-04-05 11:58 | NUR ---
PATIENT'S O2 SAT 83% WITH 15L NRB PLUS 15L NC, ENCOURAGED THE PATIENT TO TAKE DEEP BREATH. RT CALLED, MICHELLE IS GOING TO CHECK THE PATIENT.
[2020-04-05 12:00] VITALS: BP 113/76
[2020-04-05] MEDS: REMDESIVIR (EUA) 100 MG in NACL 0.9% 100 ML IV SCH (12:14)
--- NOTE | 2020-04-05 12:18 | NUR ---
SCHEDULED REMDESIVIR GIVEN VIA IVPB. EDUCATION PROVIDED. PATIENT TOLERATED WELL. O2 SAT 85%, HR 135. ENCOURAGED PATIENT TO TAKE DEEP BREATH. RT CALLED AGAIN. WILL CHECK THE PATIENT LATER.
--- NOTE | 2020-04-05 14:43 | NUR ---
PATIENT STATED THAT HE FELT HOT, CHECKED TEMP 99.4. O2 SAT 86%, HR 133. SAFETY MEASURES IN PLACE, WILL CONTINUE TO MONITOR.
[2020-04-05 16:00] VITALS: BP 150/87
[2020-04-05 18:22] LABS: ANION GAP 20.2 (8-16); POTASSIUM 4.2 mmol/L (3.5-5.1)
[2020-04-05 20:00] VITALS: BP 113/70
--- NOTE | 2020-04-05 21:20 | NUR ---
PT SAID HE FELT SOB RT CALLED. OXYGEN READJUSTED. WILL CONTINUE TO MONITOR.
--- NOTE | 2020-04-05 21:57 | NUR ---
PT PRONED 02 STILL LOW AT 78-75% RT HERE TO EVALUATE PT MAY PLACE ON BIPAP MACHINE.
--- NOTE | 2020-04-05 22:15 | NUR ---
PT PLACED ON BIPAP WITH 100%FIO2. RESPIRATIONS AND 02 IMPROVED, WILL CONTINUE TO MONITOR.
--- NOTE | 2020-04-05 23:34 | NUR ---
SPOKE WITH ACCORDION TUNER MD BUCKNER NEW ORDER NOTED FOR ATIVAN IVP TID PRN FOR RESTLESSNESS / AGITATION.
[2020-04-06] VITALS (15 sets, daily range): BP systolic 59–143; BP diastolic 40–104
[2020-04-06] MEDS: LORazepam 2 MG/ML VIAL IVP PRN ×2 (01:43→08:04)
--- NOTE | 2020-04-06 02:00 | NUR ---
ATIVAN WAS GIVEN TO HELP PT DECREASE RESPIRATIONS AND POSSIBLE INCREASE 02 UPTAKE.
--- NOTE | 2020-04-06 04:00 | NUR ---
MD BUCKNER WAS CONTACT VIA TEXT DUE TO CRITICAL PH 7.28 AND P02 63.5. SAID IT WAS OK TO INTUBATE IF ER AND RT FEEL LIKE IT IS NECESSARY. ER DOC AND RT'S AT BEDSIDE DECIDING IF THEY WANT TO INTUBATE AT THIS TIME.
--- NOTE | 2020-04-06 06:09 | NUR ---
PT NOT INTUBATED AT THIS TIME , ER MD AND RT'S TO CONTINUE MONITORING TOP. PT HAD TAKEN OFF BIPAP MASK AND IV SITE AND WAS INSTRUCTED IN [place] AND [place] TO LEAVE MASK ON. WILL CONTINUE TO MONITOR PT.
[2020-04-06] MEDS: NACL 0.9% 1,000 ML IV SCH ×2 (06:35→21:30)
--- NOTE | 2020-04-06 07:32 | NUR ---
RAPID RESPONSE CALLED. PATIENT'S O2 SAT 49%, OFF THE BIPAP. AFTER PUT BACK THE BIPAP, WAITED 15MINS, O2 SAT INCREASED TO 86%. RT CHECKED THE PATIENT. PATIENT IS AROUSABLE BY VOICE STIMULI. WILL CONTINUE TO MONITOR.
[2020-04-06] MEDS: ENOXAPARIN 80 MG/0.8 ML SYR SUBQ SCH ×2 (08:05→20:36)
--- NOTE | 2020-04-06 08:08 | NUR ---
ATIVAN GIVEN VIA IVP FOR RR 60, PATIENT IS LETHARGIC BUT AWAKABLE BY VOICE STIMULI. LOVENOX GIVEN. O2 SAT 88%, HR 61. ORAL MEDICATION NON GIVEN AT THIS TIME SINCE PATIENT HAS SEVERE SOB WHEN OFF THE BIPAP. WILL CONTINUE TO MONITOR.
[2020-04-06] MEDS: PANTOPRAZOLE 40 MG TABEC PO SCH (09:00)
[2020-04-06] MEDS: ASCORBIC ACID 500 MG TAB PO SCH (09:00)
[2020-04-06] MEDS: ZINC SULF 220 MG CAP PO SCH (09:00)
--- NOTE | 2020-04-06 09:00 | NUR ---
CALLED IT COMMUNICATIONS MANAGER, IT COMMUNICATIONS MANAGER TEAM CAME, PAGED DR. LOERA AND MADE AWARE.
--- NOTE | 2020-04-06 09:05 | NUR ---
PT INTUBATED BY DR. LOERA. ETT 7.5 @ 25CM. PLACED ON CMV. PRVC 20, 450, +14, 100%
--- NOTE | 2020-04-06 09:06 | NUR ---
PATIENT INTUBATED. CXR ORDERED STAT.
--- NOTE | 2020-04-06 09:21 | NUR ---
Patient is intubated, all po medication not administered. will start on Profofol drip. restrain applied.
[2020-04-06 09:27] LABS: BASOPHILS # (AUTO) 0.1 K/uL (0.00-0.22); BASOPHILS % (AUTO) 0.6 % (0.0-2.0); HEMATOCRIT 49.7 % (36-52); HEMOGLOBIN 16.2 g/dL (12.0-18.0); LYMPHOCYTES # (AUTO) 0.4 K/uL (2.0-11.5); LYMPHOCYTES % (AUTO) 1.9 % (20.5-51.1); MEAN CORPUSCULAR HEMOGLOBIN 29 pg (27-31); MEAN CORPUSCULAR HGB CONC 33 g/dL (33-37); MEAN CORPUSCULAR VOLUME 88.4 fL (80-94); MONOCYTES # (AUTO) 0.6 K/uL (0.8-1.0); MONOCYTES % (AUTO) 3.4 % (1.7-9.3); NEUTROPHILS # (AUTO) 17.6 K/uL (1.8-7.7); NEUTROPHILS % (AUTO) 94.1 % (42.2-75.2); PLATELET COUNT (AUTO) 264 K/uL (140-450); RED BLOOD CELL COUNT(AUTO) 5.62 MIL/uL (4.20-6.10); RED CELL DISTRIBUTION WIDTH 13.9 % (11.6-13.7); WHITE BLOOD COUNT (AUTO) 18.7 K/uL (4.8-10.8)
[2020-04-06] MEDS: PROPOFOL 1000 MG/100 ML PREMIX 100 ML IV PRN ×3 (09:38→19:44)
[2020-04-06 09:45] LABS: ANION GAP 13.8 (8-16); CARBON DIOXIDE 27.8 mmol/L (21-32); POTASSIUM 4.6 mmol/L (3.5-5.1); TOTAL BILIRUBIN 0.9 mg/dL (0.0-1.0)
--- NOTE | 2020-04-06 10:00 | NUR ---
PATIENT SUCTIONED NEEDED. WILL CONTINUE TO MONITOR.
[2020-04-06 10:10] LABS: ALBUMIN 2.1 g/dL (3.4-5.0); BILIRUBIN,DIRECT 0.2 mg/dL (0.0-0.3); TOTAL BILIRUBIN 0.9 mg/dL (0.0-1.0)
[2020-04-06 10:38] LABS: MAGNESIUM 2.5 mg/dL (1.8-2.4); PHOSPHORUS 2.7 mg/dL (2.5-4.9)
[2020-04-06] MEDS ORDERED: ACETAMINOPHEN 650 MG SUPP RC PRN (10:50)
[2020-04-06] MEDS ORDERED: ACETAMINOPHEN 650 MG SUPP RC ONE (10:53)
--- NOTE | 2020-04-06 11:13 | NUR ---
patient suctioned, RT in room. noted with fever 101 and given tylenol suppository. new IV started in the left FA. unable to inset a aragon cath, condom cath applied. profofol drip up to 20 then 25. will continue to monitor.
[2020-04-06] MEDS: REMDESIVIR (EUA) 100 MG in NACL 0.9% 100 ML IV SCH (12:00)
[2020-04-06] MEDS: NOREPINEPHRINE 4 MG in DEXTROSE 5% 250 ML IV PRN (15:04)
--- NOTE | 2020-04-06 15:11 | NUR ---
Patient was given Randasavir IVPB, and started on Levophed drip for low BP. will continue to monitor
--- NOTE | 2020-04-06 17:37 | NUR ---
PATIENT IS WAKING UP, INCREASED PROPOFOL DRIP TO 40. NOTED WITH RECTAL TEMP 100.3, TYLENOL SUPPOSITORY GIVEN. REPOSITIONED, NEW CONDOM CATH APPLIED. WILL CONTINUE TO MONITOR.
--- NOTE | 2020-04-06 19:30 | NUR ---
VENT SETTINGS SET TO PRESSURE AC, FIO2 100%, 8 PEEP, 20 RR. PATIENT HOB AT 30 DEGREES. PATIENT CONTINUOUSLY CARDIAC MONITORED ON TELE. RIGHT UPPER ARM PICC LINE DOUBLE LUMEN, LEFT FOREARM PERIPHERAL IV ACCESS. IV DRIPS RUNNING PROPOFOL @ 30, LEVO @ 6. CONDOM CATH IN PLACE, PATENT. RESTRAINTS CURRENTLY ON, FOLLOWING RESTRAINT PROTOCOL THROUGHOUT SHIFT. PATIENT PRESSURE POINTS OFFLOADED WITH US OF PILLOWS. BED LOWERED AND LOCKED IN A POSITION OF SAFETY. FREQUENT ROUNDING AND MONITORING.
--- NOTE | 2020-04-06 20:03 | NUR ---
PT SEEN WITHOUT ANCHOR FAST, VERIFIED WITH RT, HOSPITAL IS OUT OF ANCHORFASTS AT THE MOMENT, SECURED WITH TAPE. RT's AT BEDSIDE TO ASSESS PLACEMENT, POSSIBLE LEAK. WILL VERIFY WITH XRAY.
--- NOTE | 2020-04-06 20:15 | NUR ---
PT FOUND RESTING COMFORTABLY ON VENT ALARMS ARE SET AND AUDIBLE AMBUBAG IS PRESENT AT BEDSIDE, VENT IS PLUGGED INTO RED OUTLET, ETT 7.5 TAPED @25. A SMALL LEAK OF THE CUFF WAS NOTED AND THE TAPE WAS DIRTY I RETAPED THE ETT AND INFLATED THE CUFF SLIGHTLY. PT IN NO DISTRESS AT THIS TIME.
--- NOTE | 2020-04-06 22:27 | NUR ---
RADIOLOGY AT BEDSIDE @2216, OG TUBE PLACEMENT CHECK.
--- NOTE | 2020-04-06 23:35 | NUR ---
CHECKED IN WITH CT, PENDING RESULTS FOR ETT AND OGT PLACEMENT. CONFIRMED WILL FOLLOWUP WITH REPORT. SP02 WITHIN RANGE, RECEIVING TIDAL VOLUMES. NO SIGNS OF DISTRESS WILL CONTINUE TO MONITOR.
[2020-04-07] VITALS (44 sets, daily range): BP systolic 71–132; BP diastolic 38–76
[2020-04-07] MEDS: PROPOFOL 1000 MG/100 ML PREMIX 100 ML IV PRN ×5 (00:22→23:59)
--- NOTE | 2020-04-07 01:20 | NUR ---
PENDING ANOTHER CHEST XRAY, PREVIOUS SCAN DID NOT CAPTURE ETT. REPOSITIONED OGT PER RECOMMENDATION, WILL CONFIRM WITH XRAY.
[2020-04-07] MEDS ORDERED: NOREPINEPHRINE 4 MG/4 ML VIAL IV ONE (01:34)
[2020-04-07] MEDS: NOREPINEPHRINE 4 MG in DEXTROSE 5% 250 ML IV PRN (01:48)
[2020-04-07] MEDS: NACL 0.9% 1,000 ML IV SCH ×3 (03:31→23:58)
[2020-04-07] MEDS ORDERED: CRUSHER, PILL MC ONE (03:56)
[2020-04-07] MEDS: ACETAMINOPHEN 325 MG TAB PO PRN (03:58)
--- NOTE | 2020-04-07 04:41 | NUR ---
DR. RUFFIN CONTACTED FOR PAIN MED ORDERS OR FENTANYL DRIP. MADE AWARE PT IS BREATHING TOO HARD AND ONLY ON PROPOFOL DRIP. WAITING FOR NEW ORDERS.
[2020-04-07] MEDS ORDERED: MORPHINE SULFATE 4 MG/ML SYR IVP PRN (05:20)
[2020-04-07] MEDS ORDERED: MORPHINE SULFATE 4 MG/ML SYR ONE (05:21)
[2020-04-07 07:35] LABS: EOSINOPHILS % (AUTO) 0.1 % (0.0-4.0); HEMATOCRIT 43.8 % (36-52); HEMOGLOBIN 14.5 g/dL (12.0-18.0); LYMPHOCYTES # (AUTO) 0.2 K/uL (2.0-11.5); LYMPHOCYTES % (AUTO) 2.2 % (20.5-51.1); MEAN CORPUSCULAR HEMOGLOBIN 29 pg (27-31); MEAN CORPUSCULAR HGB CONC 33 g/dL (33-37); MEAN CORPUSCULAR VOLUME 87.9 fL (80-94); MONOCYTES # (AUTO) 0.3 K/uL (0.8-1.0); MONOCYTES % (AUTO) 2.8 % (1.7-9.3); NEUTROPHILS # (AUTO) 10.7 K/uL (1.8-7.7); NEUTROPHILS % (AUTO) 94.9 % (42.2-75.2); PLATELET COUNT (AUTO) 151 K/uL (140-450); RED BLOOD CELL COUNT(AUTO) 4.99 MIL/uL (4.20-6.10); RED CELL DISTRIBUTION WIDTH 14.2 % (11.6-13.7); WHITE BLOOD COUNT (AUTO) 11.3 K/uL (4.8-10.8)
--- NOTE | 2020-04-07 07:40 | NUR ---
SBAR HANDOFF REPORT AND TRANSFER OF CARE GIVEN TO RECEIVING DAYSHIFT NURSE.
[2020-04-07] MEDS: MORPHINE SULFATE 50 MG in NACL 0.9% 45 ML IV PRN ×2 (07:48→16:17)
[2020-04-07 07:55] LABS: MAGNESIUM 2.6 mg/dL (1.8-2.4); PHOSPHORUS 2.4 mg/dL (2.5-4.9)
[2020-04-07 09:49] LABS: ALBUMIN 1.8 g/dL (3.4-5.0); ANION GAP 15.4 (8-16); CARBON DIOXIDE 25.2 mmol/L (21-32); POTASSIUM 4.6 mmol/L (3.5-5.1); TOTAL BILIRUBIN 0.8 mg/dL (0.0-1.0)
--- NOTE | 2020-04-07 10:00 | NUR ---
SCHEDULED MEDICATIONS DUE GIVEN. WILL CONTINUE TO MONITOR.
[2020-04-07] MEDS: DEXAMETHASONE 4 MG TAB PO SCH (10:33)
[2020-04-07] MEDS: PANTOPRAZOLE 40 MG TABEC PO SCH (10:33)
[2020-04-07] MEDS: ASCORBIC ACID 500 MG TAB PO SCH (10:33)
[2020-04-07] MEDS: ZINC SULF 220 MG CAP PO SCH (10:33)
[2020-04-07] MEDS: ENOXAPARIN 80 MG/0.8 ML SYR SUBQ SCH ×2 (10:52→21:27)
[2020-04-07] MEDS: REMDESIVIR (EUA) 100 MG in NACL 0.9% 100 ML IV SCH (12:54)
--- NOTE | 2020-04-07 12:55 | NUR ---
SCHEDULED MEDICATIONS DUE GIVEN. WILL CONTINUE TO MONITOR.
--- NOTE | 2020-04-07 17:56 | NUR ---
04/07/20 RD FOLLOW UP COMPLETED. PLEASE REFER TO NUTRITION ASSESSMENT UNDER CARE ACTIVITY FOR ESTIMATED NUTRITIONAL NEEDS. ONCE MEDICALLY APPROPRIATE TO BEGIN FEEDS, RECOMMEND VITAL AF 1.2 @ 70 ML/HR GOAL RATE. BEGIN FEEDING AT 10 ML/HR, INCREASE BY ML 10/HR EACH SHIFT, CHECKING FOR TOLERANCE, UNTIL GOAL RATE IS REACHED. FREE WATER FLUSH OF 150 ML Q6HR ALSO RECOMMENDED. THIS WILL PROVIDE 2016 KCALS AND 126 GM PRO TO MEET 96% ESTIMATED ENERGY AND 108% ESTIMATED PRO NEEDS PER DAY CONSULT RDN PRN. RD TO FOLLOW-UP IN 2-3 DAYS PATIENT IS HIGH RISK. [address]
--- NOTE | 2020-04-07 20:05 | NUR ---
RECEIVED REPORT FROM DAYSHIFT NURSE AT PATIENTS BEDSIDE. PT ETT TO VENT, AC PC FI02 100%, RATE 20, PEEP 10. FRANDY PICC IN PLACE, INFUSING LEVOPHED 12 MCG/MIN, NS @ 100ML/HR, MORPHINE 7MG/HR, AND PROPOFOL 35 MCG/KG/MIN. RASS -3, DRY WEIGHT 92 KG. LEFT FA 20G. OGT IN PLACE, FEEDING OFF AT THIS TIME. CONDOM CATHETER IN PLACE. SKIN WARM AND DRY AND INTACT. BILATERAL SOFT WRIST RESTRAINTS IN PLACE. SKIN AND CIRCULATION INTACT. FLACC 0, HOB 30 DEGREES. SIDE RAILS UP. BED LOCKED AND IN LOWEST POSITION.
[2020-04-08] VITALS (26 sets, daily range): BP systolic 81–121; BP diastolic 42–72
[2020-04-08] MEDS: NOREPINEPHRINE 4 MG in DEXTROSE 5% 250 ML IV PRN ×4 (00:01→09:42)
[2020-04-08] MEDS: MORPHINE SULFATE 50 MG in NACL 0.9% 45 ML IV PRN ×3 (00:27→17:51)
--- NOTE | 2020-04-08 00:30 | NUR ---
ORAL CARE AND SUCTIONING PROVIDED, ET TUBE PATENT, CLEAR AND MAINTAINABLE. HOB AT 35 DEGREES.
[2020-04-08] MEDS ORDERED: NOREPINEPHRINE 4 MG/4 ML VIAL IV ONE (03:33)
[2020-04-08 06:37] LABS: ANION GAP 12.3 (8-16); CARBON DIOXIDE 28.8 mmol/L (21-32); CREATININE 2.8 mg/dL (0.6-1.3)
[2020-04-08 06:44] LABS: ALBUMIN 1.8 g/dL (3.4-5.0); BILIRUBIN,DIRECT 0.3 mg/dL (0.0-0.3); POTASSIUM 7.1 mmol/L (3.5-5.1); TOTAL BILIRUBIN 0.5 mg/dL (0.0-1.0)
--- NOTE | 2020-04-08 07:45 | NUR ---
PT. RECEIVED IN BED DEEPLY SEDATED ON PROPOFOL AND MORPHINE SULFATE FOR PAIN.PT NOT AROUSABLE DUE TO SEDATION.ETT TO VENT ON PC MODE 24,RATE 20, FIO2 100%,SATTING 93%.ST ON THE MONITOR.FEEDING ON HOLD VIA OGT.SKIN WARM AND DRY WITH COOLING ON EXTREMITIES.ISOLATED FOR COVID.B/P LOW, PT ON LEVOPHED @ 24MCG/MIN.AFEBRILE.VOIDS VIA TANNER.K ELEVATED 7.1, AWARE AND TREATMENT IN PROGRESS.
[2020-04-08] MEDS ORDERED: SODIUM ZIRCONIUM CYCLOSILICATE 10 GM POWD.PACK PO SCH (08:00)
[2020-04-08] MEDS ORDERED: CALCIUM GLUCONATE 10% 1,000 MG in NACL 0.9% 50 ML IV SCH (08:00)
[2020-04-08] MEDS: NACL 0.9% 1,000 ML IV SCH ×2 (08:55→17:51)
[2020-04-08] MEDS: ASCORBIC ACID 500 MG TAB PO SCH (09:55)
[2020-04-08] MEDS: PANTOPRAZOLE 40 MG TABEC PO SCH (09:55)
[2020-04-08] MEDS: DEXAMETHASONE 4 MG TAB PO SCH (09:56)
[2020-04-08] MEDS: ZINC SULF 220 MG CAP PO SCH (09:56)
[2020-04-08] MEDS: ENOXAPARIN 80 MG/0.8 ML SYR SUBQ SCH (10:09)
[2020-04-08 11:15] LABS: BASOPHILS % (AUTO) 0.3 % (0.0-2.0); LYMPHOCYTES # (AUTO) 0.3 K/uL (2.0-11.5); LYMPHOCYTES % (AUTO) 2.1 % (20.5-51.1); MEAN CORPUSCULAR HEMOGLOBIN 29 pg (27-31); MEAN CORPUSCULAR HGB CONC 32 g/dL (33-37); MEAN CORPUSCULAR VOLUME 91.3 fL (80-94); MONOCYTES # (AUTO) 0.6 K/uL (0.8-1.0); MONOCYTES % (AUTO) 3.7 % (1.7-9.3); NEUTROPHILS # (AUTO) 15.1 K/uL (1.8-7.7); NEUTROPHILS % (AUTO) 93.9 % (42.2-75.2); PLATELET COUNT (AUTO) 157 K/uL (140-450); RED BLOOD CELL COUNT(AUTO) 4.82 MIL/uL (4.20-6.10); RED CELL DISTRIBUTION WIDTH 14.5 % (11.6-13.7); WHITE BLOOD COUNT (AUTO) 16.1 K/uL (4.8-10.8)
[2020-04-08 11:49] LABS: ALBUMIN 1.7 g/dL (3.4-5.0); ANION GAP 16.1 (8-16); CARBON DIOXIDE 25.1 mmol/L (21-32); CREATININE 3.1 mg/dL (0.6-1.3); TOTAL BILIRUBIN 0.5 mg/dL (0.0-1.0)
[2020-04-08 12:16] LABS: POTASSIUM 7.2 mmol/L (3.5-5.1)
--- NOTE | 2020-04-08 12:20 | NUR ---
DR DURANT NOTIFIED OF CRITICAL LAB K 7.2, BUN 66, NO ORDER RECEIVED AT THIS TIME.
--- NOTE | 2020-04-08 12:51 | NUR ---
RECEIVED TORB ORDERS FOR CALCIUM CHLORIDE 10% 1 AMP IVP ONCE, HUMULIN R 10 UNIT IVP ONCE, D50 ONCE IVP, SODIUM BICARBONATE 1 AMP 50 MEQ IVP ONCE. ALSO ORDER CONSULT FOR DR SIMMONS FOR GARCIA CATHETER PLACEMENT, OBTAIN CONSENT FOR GARCIA CATH PLACEMENT, PRIMARY RN MIKE WAS NOTIFIED.
--- NOTE | 2020-04-08 13:14 | NUR ---
TELEPHONE CONSENT OBTAINED FROM PATIENT'S DAUGHTER AMI SMITH FOR GARCIA CATHETER PLACEMENT, AMI WAS AWARE AND AGREED TO PROCEDURE. PRIMARY RN MIKE ANSWERED ALL AMI'S QUESTIONS.
[2020-04-08] MEDS: NOREPINEPHRINE 16 MG in DEXTROSE 5% 250 ML IV PRN (13:23)
[2020-04-08] MEDS ORDERED: DEXTROSE 50% 50 ML SYR IVP SCH (13:30)
[2020-04-08] MEDS ORDERED: CALCIUM CHLORIDE 10% 100 MG/ML SYR IVP SCH (13:30)
[2020-04-08] MEDS ORDERED: SODIUM BICARBONATE 8.4% PFS 50 MEQ/50 ML SYR IVP SCH (13:30)
[2020-04-08] MEDS ORDERED: INSULIN REGULAR, HUMAN 100 UNIT/ML VIAL IVP SCH (13:30)
--- NOTE | 2020-04-08 16:15 | NUR ---
SEDATED STABLE GOOD CHEST RISE AND AERATION THROUGHOUT BILATERAL LUNG FRANKS AIRWAY PATENT
[2020-04-08] MEDS ORDERED: FUROSEMIDE 100 MG/10 ML VIAL IV SCH (18:30)
--- NOTE | 2020-04-08 18:45 | NUR ---
PT REMAIN SEDATED.UPDATE PROVIDED TO PT'S FAMILY.DR SIMMONS @ BEDSIDE FOR HD CATH PLACEMENT.
--- NOTE | 2020-04-08 19:30 | NUR ---
RECEIVED SBAR HANDOFF REPORT FROM PAT MONDRAGON. VENT SETTINGS PRESSURE CONTROL AC FIO2 100%, PEEP 10, RR 20. HOB AT 30 DEGREES. ET TUBE INTACT AND PATENT, CONNECTED TO SUCTION. OG TUBE INTACT, PATENT AND LOCKED. RIGHT UPPER ARM DOUBLE LUMEN PICC, LEFT FOREARM PERIPHERAL IV ACCESS. DRIPS RUNNING INCLUDE LEVO AT 24, PROPOFOL AT 15, AND MORPHINE AT 6. PATIENT CONNECTED TO THE TELE MONITOR FOR CONTINUOUS BEDSIDE MONITORING. PATIENT WEARING A CONDOM CATHETER, SECURED AND PATENT. PATIENT OFFLOADED FROM PRESSURE POINTS WITH US OF PILLOWS. BED IN A LOWERED AND LOCKED POSITION FOR SAFETY. Addendum: 04/09/20 at 4 by Orlando Lopez RN RN LEVO @ 24 MCG/MIN, PROPOFOL @ 15 MCG/KG/MIN, MORPHINE @ 6ML/HR.
--- NOTE | 2020-04-08 20:30 | NUR ---
DIALYSIS NURSE ARRIVED FOR DIALYSIS.
--- NOTE | 2020-04-08 21:00 | NUR ---
ORAL CARE AND SUCTIONING PROVIDED, FREQUENTLY ROUNDED AND MONITORED, PATIENT OFFLOADED FROM PRESSURE POINTS WITH PILLOWS.
--- NOTE | 2020-04-08 21:17 | NUR ---
DIALYSIS NURSE REPORTED 400 ML REMOVED DURING DIALYSIS.
[2020-04-09] VITALS (24 sets, daily range): BP systolic 74–123; BP diastolic 42–73
--- NOTE | 2020-04-09 00:10 | NUR ---
RECEIVED CALL FROM LAB @ [id number] 04/08/2020, CRITICAL LAB VALUE, POTASSIUM 7.0
[2020-04-09] MEDS: PROPOFOL 1000 MG/100 ML PREMIX 100 ML IV PRN ×2 (00:58→22:57)
[2020-04-09] MEDS: NOREPINEPHRINE 16 MG in DEXTROSE 5% 250 ML IV PRN ×2 (01:08→12:20)
[2020-04-09] MEDS: MORPHINE SULFATE 50 MG in NACL 0.9% 45 ML IV PRN ×3 (01:28→19:54)
--- NOTE | 2020-04-09 01:30 | NUR ---
PORTABLE XRAY ARRIVED AT BEDSIDE TO CHECK ET TUBE PLACEMENT POST RT INTERVENTIONS/ADJUSTMENTS.
--- NOTE | 2020-04-09 02:45 | NUR ---
[facility] STARTED @ 0245. MONITORING PATIENT VITALS AND TEMPERATURE ACCORDING TO TRANSFUSION PROTOCOL.
[2020-04-09] MEDS: NACL 0.9% 1,000 ML IV SCH ×2 (05:15→14:55)
[2020-04-09 06:50] LABS: ALBUMIN 1.9 g/dL (3.4-5.0); ANION GAP 17.8 (8-16); CARBON DIOXIDE 23.5 mmol/L (21-32); TOTAL BILIRUBIN 0.5 mg/dL (0.0-1.0)
[2020-04-09 06:53] LABS: POTASSIUM 7.3 mmol/L (3.5-5.1)
--- NOTE | 2020-04-09 07:02 | NUR ---
CRITICAL LAB VALUES REPORTED FROM LAB, POTASSIUM (K) 7.3, BUN 83, CREATININE 5.0.
--- NOTE | 2020-04-09 07:30 | NUR ---
PT. RECEIVED IN BED SEDATED ON PROPOFOL @ 15MCG/KG/MIN AND MORPHINE SULFATE FOR PAIN CARE.CARE ASSURED.UNABLE TO AROUSE PT DUE TO DEEP SEDATION.ETT TO VENT, ON PC MODE 24, RATE 20,FIO2 100% ,P10,SATTING 94%.ST ON THE MONITOR.OGT CLAMPED FOR MEDS AND FEEDING PENDING @ THIS TIME.HD PT WITH NON-WORKING ACCESS ON RIGHT FEMORAL.HD ACCESS WILL BE CHANGED AND HD FOR TODAY PER ORDERS.ANURIC.SKIN WARM AND DRY TO TOUCH.B/P TRENDING LOW ON LEVOPHED @ 30MCG/MIN.AFEBRILE.ISOLATION FOR COVID CONTINUES.
--- NOTE | 2020-04-09 07:30 | NUR ---
SBAR AND TRANSFER OF CARE GIVEN TO ONCOMING DAYSHIFT NURSE, MIKE.
[2020-04-09] MEDS ORDERED: CALCIUM CHLORIDE 10% 100 MG/ML SYR IVP SCH (10:05)
[2020-04-09] MEDS ORDERED: SODIUM ZIRCONIUM CYCLOSILICATE 10 GM POWD.PACK PO SCH (10:05)
[2020-04-09] MEDS ORDERED: DEXTROSE 50% 50 ML SYR IVP SCH (10:05)
[2020-04-09] MEDS ORDERED: INSULIN REGULAR, HUMAN 100 UNIT/ML VIAL IVP SCH (10:05)
[2020-04-09] MEDS ORDERED: PHENYLEPHRINE 10 MG in NACL 0.9% 250 ML IV PRN (10:25)
[2020-04-09] MEDS: PANTOPRAZOLE 40 MG TABEC PO SCH (10:54)
[2020-04-09] MEDS: ASCORBIC ACID 500 MG TAB PO SCH (10:55)
[2020-04-09] MEDS: ZINC SULF 220 MG CAP PO SCH (10:55)
[2020-04-09] MEDS ORDERED: NACL 0.9% IV SCH (11:00)
[2020-04-09] MEDS ORDERED: CALCIUM CHLORIDE IV SCH (11:00)
--- NOTE | 2020-04-09 11:02 | NUR ---
RELL [employer] MADE AWARE THAT DR SIMMONS HAS PLACED A NEW GARCIA AND DIALYSIS ORDER FOR TODAY AND TOMORROW, RELL MONDRAGON WAS AWARE AND SAID " I WILL BE THERE".
[2020-04-09 11:05] LABS: BASOPHILS # (AUTO) 0.1 K/uL (0.00-0.22); BASOPHILS % (AUTO) 0.5 % (0.0-2.0); HEMATOCRIT 41.9 % (36-52); HEMOGLOBIN 12.8 g/dL (12.0-18.0); LYMPHOCYTES # (AUTO) 0.2 K/uL (2.0-11.5); LYMPHOCYTES % (AUTO) 1.7 % (20.5-51.1); MEAN CORPUSCULAR HEMOGLOBIN 29 pg (27-31); MEAN CORPUSCULAR HGB CONC 31 g/dL (33-37); MEAN CORPUSCULAR VOLUME 93.2 fL (80-94); MONOCYTES # (AUTO) 0.6 K/uL (0.8-1.0); MONOCYTES % (AUTO) 4.5 % (1.7-9.3); NEUTROPHILS # (AUTO) 13.3 K/uL (1.8-7.7); NEUTROPHILS % (AUTO) 93.3 % (42.2-75.2); PLATELET COUNT (AUTO) 124 K/uL (140-450); RED BLOOD CELL COUNT(AUTO) 4.49 MIL/uL (4.20-6.10); RED CELL DISTRIBUTION WIDTH 15.3 % (11.6-13.7); WHITE BLOOD COUNT (AUTO) 14.3 K/uL (4.8-10.8)
[2020-04-09] MEDS: VASOPRESSIN 20 UNITS in NACL 0.9% 250 ML IV SCH ×2 (13:31→23:23)
--- NOTE | 2020-04-09 16:30 | NUR ---
PT IS SEDATED AND UNAROUSABLE TO STIMULI.DR SIMMONS PLACED HD CATH VIA RIGHT JUGULAR.PT IS S/P HD W/O ANY REMOVAL OF FLUID.B/P INDERJIT AND ADDED TWO PRESSORS, NEOSYNEPHRINE @ 50MCG/MIN AND VASOPRESSIN @ 0.03 (NON-TITRATE) UNITS/MIN.UPDATE PROVIDED TO PT'S FAMILY.NEEDS ARE BEING MET. CLOSE MONITORING IN PROGRESS.
[2020-04-09] MEDS: PHENYLEPHRINE 40 MG in NACL 0.9% 250 ML IV PRN (17:58)
--- NOTE | 2020-04-09 19:30 | NUR ---
SBAR HANDOFF REPORT RECEIVED FROM DAYSHIFT NURSEMIKE.
--- NOTE | 2020-04-09 19:45 | NUR ---
VENT SETTINGS FIO2 90%, RR SET TO 20, PEEP 10. ET TUBE PATENT, OPEN, CLEAR AND MAINTAINABLE. HOB 30 DEGREES, IN A POSITION OF COMFORT. IV ACCESS INCLUDES LEFT FOREARM PERIPHERAL IV, RIGHT UPPER ARM PICC LINE DOUBLE LUMEN, RIGHT FEMORAL PICC LINE TRIPPLE LUMEN, RIGHT JUGULAR PICC. DRIPS RUNNING ARE LEVO 20 MCG/MIN, QUINCY 100 MCG/MIN, VASOPRESSIN 0.03 IU/MIN, PROPOFOL 20 MCG/KG/MIN, MORPHINE 6 ML/HR, NS 100 ML/HR. OG TUBE PATENT AND MAINTAINABLE. PATIENT OFFLOADED WITH USE OF PILLOWS TO REDUCE CONTACT WITH PRESSURE POINTS. BED LOCKED AND LOWERED IN A POSITION OF SAFETY.
--- NOTE | 2020-04-09 21:00 | NUR ---
FREQUENT MONITORING AND ROUNDING, ORAL CARE PROVIDED, OFFLOADED FROM PRESSURE POINTS, HOB 30 DEGREES. CONTINUOUSLY CARDIAC MONITORED, SINUS TACHYCARDIA.
[2020-04-09] MEDS ORDERED: VASOPRESSIN 20 UNITS/ML VIAL ONE (22:50)
--- NOTE | 2020-04-09 23:00 | NUR ---
INTERMITTENT SUCTIONING ET TUBE AND ORAL SUCTION, ORAL CARE, OFFLOADING OF PRESSURE POINTS, FREQUENT ROUNDING AND MONITORING.
[2020-04-10] VITALS (25 sets, daily range): BP systolic 59–128; BP diastolic 41–93
[2020-04-10] MEDS: MORPHINE SULFATE 50 MG in NACL 0.9% 45 ML IV PRN ×3 (00:18→18:45)
--- NOTE | 2020-04-10 01:30 | NUR ---
PORTABLE XRAY ARRIVED AT BEDSIDE TO CHECK ET TUBE PLACEMENT STATUS POST RT INTERVENTIONS/ADJUSTMENTS.
[2020-04-10] MEDS: NACL 0.9% 1,000 ML IV SCH ×2 (01:43→11:52)
[2020-04-10] MEDS: NOREPINEPHRINE 16 MG in DEXTROSE 5% 250 ML IV PRN ×3 (01:46→22:30)
--- NOTE | 2020-04-10 04:30 | NUR ---
ORAL CARE PROVIDED, HOB MAINTAINED AT 30 DEGREES, ET TUBE CLEAR, PATENT AND MAINTAINABLE, DRESSINGS DRY AND INTACT, FREQUENT ROUNDING AND MONITORING.
[2020-04-10] MEDS ORDERED: PHENYLEPHRINE 10 MG/ML VIAL ONE (05:00)
[2020-04-10] MEDS: PHENYLEPHRINE 40 MG in NACL 0.9% 250 ML IV PRN ×4 (05:13→22:30)
--- NOTE | 2020-04-10 07:35 | NUR ---
FREQUENT ROUNDING AND MONITORING, CONTINUOUS CARDIAC MONITORING, SINUS TACHYCARDIA.
--- NOTE | 2020-04-10 07:45 | NUR ---
SBAR HANDOFF AND TRANSFER OF CARE GIVEN TO RECEIVING DAYSHIFT NURSE
--- NOTE | 2020-04-10 08:00 | NUR ---
RECEIVED WINDOW SIDE REPORT FROM ADVERTISING PHOTOGRAPHER NURSE. PT SUPINE IN BED, SEDATED TO RASS -3, AROUSABLE TO LIGHT PAIN. ETT TO VENT: FIO2 100%, RR 20, PEEP 10. BREATHING EVEN AND UNLABORED NO SIGNS OF ACUTE DISTRESS NOTED. NO TANNER IN PLACE. G TUBE IN PLACE, FEEDING NOT RUNNING. RIJ ACCESS, FRANDY PIC, CLEAN DRY INTACT, INFUSING NEOSYNEPHRINE @ 150 MCG/MIN, LEVOPHED @ 20 MCG/MIN, PROPOFOL @ 20 MCG/KG/MIN, MORPHINE @ 6ML/HR, NS @ 100 ML/HR, VASOPRESSING @ 0.03 IU/MIN. SOUND EFFECTS MANAGER IN PLACE, SAFETY MEASURES IN PLACE.
[2020-04-10] MEDS ORDERED: ALBUMIN HUMAN 25% 200 ML IV ONE (09:25)
[2020-04-10] MEDS: PANTOPRAZOLE 40 MG TABEC PO SCH (09:29)
[2020-04-10] MEDS: ZINC SULF 220 MG CAP PO SCH (09:29)
[2020-04-10] MEDS: ASCORBIC ACID 500 MG TAB PO SCH (09:29)
[2020-04-10] MEDS ORDERED: ALBUMIN HUMAN 25% 100 ML IV SCH ×2 (09:30→10:30)
--- NOTE | 2020-04-10 10:38 | NUR ---
04/10/20 RD FOLLOW UP COMPLETED PLEASE REFER TO NUTRITION ASSESSMENT UNDER CARE ACTIVITY FOR ESTIMATED NUTRITIONAL NEEDS. 1. RECOMMEND CHANGE TF TO NEPRO @ 55 ML/HR X 24 HR. -THIS WILL PROVIDE 2376 KCAL AND 107 G PROTEIN MEEITNG 100% OF ESTIMATED KCAL NEEDS AND 96% OF ESTIMATED PROTEIN NEEDS 2. FWF PER MD PT IS ON HEMODIALYSIS 3. CONSULT RDN PRN. 4. RD TO FOLLOW-UP IN 2-3 DAYS PATIENT IS HIGH RISK. VIRGIL FRANZ RD
[2020-04-10] MEDS: VASOPRESSIN 20 UNITS in NACL 0.9% 250 ML IV SCH ×2 (13:19→22:30)
--- NOTE | 2020-04-10 14:10 | NUR ---
DR GOOD ROUNDING ON PT AT BEDSIDE. PER DR GOOD, DC FLUIDS AND BEGIN EPINEPHRINE.
--- NOTE | 2020-04-10 19:51 | NUR ---
RECEIVED PATIENT FROM AM SHIFT. PATIENT WAS SEEN AND ASSESSED. PATIENT IS INTUBATED WITH ETT SIZE 7.5 AND SECURED WITH ANCHOR-FAST AT 25cm. PATIENT IS ON VENT SETTINGS: PC 24, RR 20, PEEP 10, FiO2 100% WITH SPO2 OF 93%. VENT IS PLUGGED IN RED OUTLET. AMBU BAG AT BEDSIDE. VENT ALARMS SET AND AUDIBLE TO ENVIRONMENT. SUCTIONED SMALL AMOUNT OF CLEAR/YELLOW THICK SECRETIONS FROM ETT. AIRWAY IS PATENT. AUSCULTATION REVEALS BILATERAL COARSE BREATH SOUNDS. PATIENT IS IN NO APPARENT RESPIRATORY DISTRESS AT THIS TIME. WILL CONTINUE TO MONITOR PATIENT.
--- NOTE | 2020-04-10 20:00 | NUR ---
RECEIVED REPORT FROM DAY SHIFT RN. [facility]ILY AT [facility] S[facility]. PT ETT TO VENT. A/C PC FIO2 100%, RATE 24, PEEP 10. RESPIRATION EVEN AND UNLABORED. CHEST EXPANSION SYMMETRICAL. ORAL MUCOSA PINK AND MOIST. SKIN WARM, DRY AND INTACT. PERIPHERAL ACCESSES ON THE LEFT HAND 20G, LEFT FOREARM 20G, RIGHT UPPER ARM PICC LINE, RIGHT FEMORAL CENTRAL LINE AND RIGHT IJ GARCIA WITH PIGTAIL FOR HD. PT ON PROPOFOL @ 10MCG/KG/MIN, MORPHINE @ 6MG/HR, VASOPRESSIN @ 0.03 UNITS/MIN, QUINCY @ 150 MCG/MIN, LEVOPHED @ 22MCG/MIN. OGT IN PLACE CLAMPED. BED IN LOWEST POSITION. SIDE RAILS UP. ISOLATION PRECAUTION MAINTAINED. WILL CONTINUE TO MONITOR.
[2020-04-10] MEDS: PROPOFOL 1000 MG/100 ML PREMIX 100 ML IV PRN (22:00)
[2020-04-10] MEDS: EPINEPHrine 1:1000 (1 mg/mL) 1 MG in DEXTROSE 5% 250 ML IV PRN (22:30)
--- NOTE | 2020-04-10 22:30 | NUR ---
EPINEPHRINE STARTED @ 1MCG/MIN. LATEST BP: 80/46. PT MAX WITH QUINCY, LEVO AND VASOPRESSIN. WILL MONITOR PT.
[2020-04-11] VITALS (24 sets, daily range): BP systolic 88–142; BP diastolic 54–66
--- NOTE | 2020-04-11 | NUR ---
PT CONDITION REMAINS UNCHANGED. WILL CLOSELY MONITOR PT.
--- NOTE | 2020-04-11 04:00 | NUR ---
MORNING CARE PROVIDED. TURNED AND REPOSITIONED PT. CONDITION REMAINS UNCHANGED. WILL CONTINUE TO MONITOR.
[2020-04-11] MEDS: NOREPINEPHRINE 16 MG in DEXTROSE 5% 250 ML IV PRN ×3 (04:30→20:00)
[2020-04-11] MEDS: MORPHINE SULFATE 50 MG in NACL 0.9% 45 ML IV PRN ×3 (04:39→21:48)
[2020-04-11] MEDS: PHENYLEPHRINE 40 MG in NACL 0.9% 250 ML IV PRN ×2 (04:40→09:43)
--- NOTE | 2020-04-11 07:30 | NUR ---
ENDORSED PT TO DAY SHIFT RN FOR CONTINUITY OF CARE.
--- NOTE | 2020-04-11 07:30 | NUR ---
HANDOFF RECEIVED FROM DIRECTOR OF ANALYTICS RN. PT IS SEDATED RASS -3. PT IS ETT TO VENT, ACPC MODE, WITH FIO2 100%, PEEP 10, R 24. PT HAS ACCESS AT FRANDY PICC, LH 20 G, L FA 20 G, RIJ HD ACCESS, AND R FEMORAL. VASOPRESSIN IS RUNNING AT 0.04 UNITS/MIN, NEOSYNEPHRINE IS RUNNING AT 150 MCG/MIN, EPINEPHRINE IS RUNNING AT 1 MCG/MIN, LEVOPHED AT 30 MCG/MIN, PROPOFOL AT 10 MCG/KG/MIN AND MORPHINE AT 7 MG/HR. PT IS SR AT THIS TIME. PT HAS OG TUBE WITH FEEDING. GOAL RATE IS 55 ML/HR WITH FWF 150 Q 6HR. HOB 30 DEG WITH BED IN LOW LOCKED POSITION.
[2020-04-11] MEDS ORDERED: VASOPRESSIN 20 UNITS/ML VIAL ONE (08:29)
[2020-04-11] MEDS: VASOPRESSIN 20 UNITS in NACL 0.9% 250 ML IV SCH ×2 (08:42→17:32)
[2020-04-11] MEDS ORDERED: PANTOPRAZOLE 40 MG INJ VIAL IVP SCH (09:00)
--- NOTE | 2020-04-11 09:09 | NUR ---
DR. GOOD SEEING PT. PLANS TO CALL FAMILY
[2020-04-11] MEDS ORDERED: PANTOPRAZOLE 40 MG INJ VIAL ONE (09:31)
[2020-04-11 10:00] LABS: BASOPHILS % (AUTO) 0.2 % (0.0-2.0); HEMATOCRIT 35.9 % (36-52); HEMOGLOBIN 11.2 g/dL (12.0-18.0); LYMPHOCYTES # (AUTO) 0.6 K/uL (2.0-11.5); LYMPHOCYTES % (AUTO) 2.9 % (20.5-51.1); MEAN CORPUSCULAR HEMOGLOBIN 28 pg (27-31); MEAN CORPUSCULAR HGB CONC 31 g/dL (33-37); MONOCYTES # (AUTO) 0.6 K/uL (0.8-1.0); MONOCYTES % (AUTO) 3.1 % (1.7-9.3); NEUTROPHILS # (AUTO) 18.3 K/uL (1.8-7.7); NEUTROPHILS % (AUTO) 93.8 % (42.2-75.2); PLATELET COUNT (AUTO) 59 K/uL (140-450); RED BLOOD CELL COUNT(AUTO) 3.94 MIL/uL (4.20-6.10); RED CELL DISTRIBUTION WIDTH 14.9 % (11.6-13.7); WHITE BLOOD COUNT (AUTO) 19.6 K/uL (4.8-10.8)
[2020-04-11] MEDS: ASCORBIC ACID 500 MG TAB PO SCH (10:03)
[2020-04-11] MEDS: ZINC SULF 220 MG CAP PO SCH (10:03)
[2020-04-11 10:10] LABS: ANION GAP 26.5 (8-16); CARBON DIOXIDE 15.8 mmol/L (21-32)
[2020-04-11 10:27] LABS: CREATININE 7.2 mg/dL (0.6-1.3); POTASSIUM 6.3 mmol/L (3.5-5.1)
[2020-04-11] MEDS ORDERED: LEVOFLOXACIN 500 MG/D5W PREMIX 100 ML IV SCH (13:00)
--- NOTE | 2020-04-11 13:04 | NUR ---
SPOKE TO FAMILY. WISHES PT TO REMAIN FULL CODE
[2020-04-11] MEDS ORDERED: EPINEPHrine 1:1000 - 1 MG/ML AMP ONE (14:26)
[2020-04-11] MEDS: EPINEPHrine 1:1000 (1 mg/mL) 1 MG in DEXTROSE 5% 250 ML IV PRN ×3 (14:57→23:45)
[2020-04-11] MEDS: PROPOFOL 1000 MG/100 ML PREMIX 100 ML IV PRN (18:55)
--- NOTE | 2020-04-11 19:20 | NUR ---
RECEIVED PATIENT FROM AM SHIFT NURSE FOR CONTINUITY OF CARE. PATIENT RESTING IN BED. RASS -3. RESPIRATIONS TACHYPNEIC, SLIGHTLY LABORED. O2SAT 92% ETT TO VENT. VENT SETTING: AC/PC FIO2 100% RR 24 PEEP 10. SKIN WARM, DRY. RIGHT IJ FOR HD INTACT. DRESSING CLEAN/DRY. SALINE LOCK TO LEFT HAND 20G PATENT/INTACT. SALINE LOCK TO LEFT FOREARM 20G PATENT/INTACT. RIGHT FEMORAL ACCESS. DRESSING CLEAN/DRY AND INTACT. RIGHT UPPER ARM PICC PATENT/INTACT, INFUSING VASOPRESSIN 0.04 UNITS/MIN, PROP 10 MCG/KG/MIN, QUINCY 150 MCG/MIN, LEVOPHED 30 MCG/MIN, EPI 3 MCG/MIN WELL. ABDOMEN SOFT, NONTENDER, NONDISTENDED. BOWEL SOUNDS ACTIVE X4 QUADRANTS. OGT NOTED. CONTINUES ON ENTERAL FEEDING, TOLERATING WELL. HOB UP 30 DEGREES. PATIENT IS INCONTINENT OF B/B. PLAN OF CARE DISCUSSED. CALL LIGHT WITHIN REACH. ISOLATION PRECAUTIONS OBSERVED BY ALL STAFF. SAFETY PRECAUTIONS IN PLACE. FREQUENT ROUNDS MADE BY ALL STAFF.
--- NOTE | 2020-04-11 19:30 | NUR ---
HANDOFF GIVEN TO ORNAMENTAL IRONWORKER HELPER RN AT WINDOW.
[2020-04-11] MEDS ORDERED: SODIUM ZIRCONIUM CYCLOSILICATE 10 GM POWD.PACK GT/PO SCH (19:55)
[2020-04-11] MEDS ORDERED: CEFEPIME 500 MG in DEXTROSE 5% 50 ML IV SCH ×4 (21:00)
--- NOTE | 2020-04-11 21:00 | NUR ---
DUE MEDS GIVEN. TURNED AND REPOSITIONED FOR COMFORT. SAFETY PRECAUTIONS IN PLACE. FREQUENT ROUNDS MADE. ISOLATION PRECAUTIONS OBSERVED BY ALL STAFF.
--- NOTE | 2020-04-11 23:45 | NUR ---
SPOKE TO FAMILY HEATHER TO GIVE UPDATE ON PATIENT.
[2020-04-12] VITALS: BP 80/47
--- NOTE | 2020-04-12 01:00 | NUR ---
PATIENT WITH EPISODE OF HYPOTENSION. PATIENT IS ON MAXIMUM DOSES FOR LEVO, QUINCY AND VASOPRESSIN. FREQUENT ROUNDS BY STAFF.
[2020-04-12] MEDS ORDERED: VASOPRESSIN 20 UNITS/ML VIAL ONE (01:08)
--- NOTE | 2020-04-12 01:30 | NUR ---
PATIENT'S O2SAT IS DROPPING AT THIS TIME. O2SAT 88%. RT IS AT BEDSIDE.
[2020-04-12] MEDS: NOREPINEPHRINE 16 MG in DEXTROSE 5% 250 ML IV PRN (01:45)
[2020-04-12] MEDS: PHENYLEPHRINE 40 MG in NACL 0.9% 250 ML IV PRN (01:46)
[2020-04-12 02:00] VITALS: BP 108/81
[2020-04-12] MEDS: EPINEPHrine 1:1000 (1 mg/mL) 1 MG in DEXTROSE 5% 250 ML IV PRN (02:10)
--- NOTE | 2020-04-12 02:10 | NUR ---
PATIENT'S VITALS CONTINUE TO DROP. INCREASED EPI ORDERED.
--- NOTE | 2020-04-12 02:30 | NUR ---
CALLED BEL ROMERO REGARDING PATIENT'S CHANGE OF CONDITION.
--- NOTE | 2020-04-12 03:02 | NUR ---
PATIENT . FAMILY NOTIFIED.
--- NOTE | 2020-04-12 03:25 | NUR ---
SPOKE WITH ANA LUISA LE FROM THE CARD GAME OPERATOR'S OFFICE TO CONFIRM RELEASE OF BODY.
--- NOTE | 2020-04-12 03:30 | NUR ---
SPOKE TO KIM LOERA FROM [facility], PATIENT IS NOT A CANDIDATE. REF #[id number]
[2020-04-13] MEDS ORDERED: LEVOFLOXACIN 250 MG/D5 PREMIX 50 ML IV SCH (13:00)
== END 2020-04-12 04:00 | DRG 720 ==
LOC: MED 14:18 → MTU 19:15 → MMU 04-07 17:01
PROVIDERS: ADMIT Family Medicine; ATTEND Family Medicine
PROC: 5A09357 Assistance with Respiratory Ventilation, Less than 24 Consecutive Hours, Continuous Positive Airway Pressure (ICD-10-PCS; 2020-04-05)
PROC: 0BH17EZ Insertion of Endotracheal Airway into Trachea, Via Natural or Artificial Opening (ICD-10-PCS; 2020-04-06)
PROC: 5A1955Z Respiratory Ventilation, Greater than 96 Consecutive Hours (ICD-10-PCS; 2020-04-06)
PROC: XW033E5 Introduction of Remdesivir Anti-infective into Peripheral Vein, Percutaneous Approach, New Technology Group 5 (ICD-10-PCS; principal; 2020-04-07)
PROC: 5A1D70Z Performance of Urinary Filtration, Intermittent, Less than 6 Hours Per Day (ICD-10-PCS; 2020-04-08)
PROC: 30233K1 Transfusion of Nonautologous Frozen Plasma into Peripheral Vein, Percutaneous Approach (ICD-10-PCS; 2020-04-09)
PROC: 5A1D70Z Performance of Urinary Filtration, Intermittent, Less than 6 Hours Per Day (ICD-10-PCS; 2020-04-09)
PROC: 02HV33Z Insertion of Infusion Device into Superior Vena Cava, Percutaneous Approach (ICD-10-PCS; 2020-04-09)
PROC: B548ZZA Ultrasonography of Superior Vena Cava, Guidance (ICD-10-PCS; 2020-04-09)
PROC: 06HY33Z Insertion of Infusion Device into Lower Vein, Percutaneous Approach (ICD-10-PCS; 2020-04-09)
DX: A41.89 Other specified sepsis (principal); U07.1 COVID-19; E43 Unspecified severe protein-calorie malnutrition; E87.5 Hyperkalemia; G93.40 Encephalopathy, unspecified; D68.69 Other thrombophilia; J80 Acute respiratory distress syndrome; R65.21 Severe sepsis with septic shock; J12.89 Other viral pneumonia; N17.0 Acute kidney failure with tubular necrosis; E86.0 Dehydration; Z85.46 Personal history of malignant neoplasm of prostate; Z88.0 Allergy status to penicillin; Z68.29 Body mass index [BMI] 29.0-29.9, adult; R74.01 Elevation of levels of liver transaminase levels; Z79.899 Other long term (current) drug therapy
CPT/HCPCS: 36415; 71045; 71275; 80048; 80053; 80076; 80305; 81003; 82150; 82550; 82728; 83036; 83605; 83615; 83690; 83735; 83880; 84100; 84132; 84436; 84439; 84443; 84479; 84484; 85025; 85379; 85384; 85610; 85651; 85730; 86140; 86886; 86900; 86901; 87040; 87081; 87086; 87804; 90935; 93005; 94003; 96365; 96367; 99291; C9113; J0171; J0456; J0610; J0696; J1100; J1644; J1650; J1815; J1956; J2060; J2270; J2370; J2405; J2704; J3010; J3490; J7030; J7060; P9017; P9046; Q9967; U0003